=== PATIENT | male | born 1965 | race Caucasian/White ===

== ENCOUNTER → 2021-02-10 00:56 | Outpatient (CLI) | payer OTHER, SELFPAY ==
[2021-02-10 19:49] LABS: SARS-CoV-2 RNA PCR Negative
== END ==
PROVIDERS: PCP Family Medicine Adolescent Medicine; Visit Provider Internal Medicine Gastroenterology
DX: Z01.812 Encounter for preprocedural laboratory examination (principal); Z20.822 Contact with and (suspected) exposure to COVID-19
CPT/HCPCS: C9803; U0003; U0005

== ENCOUNTER 2021-08-19 12:37 | Emergency (ER) | payer OTHER, SELFPAY ==
--- NOTE | ~2021-08-19 | CT_ITS ---
EXAMINATION:CT diagnostic chest wo con DATE: 08/19/2021 15:09 INDICATION: Abdominal pain. Rib fracture. TECHNIQUE: Computed tomography (CT) of the chest was performed without intravenous contrast. Automate d exposure control and iterative reconstruction technique were employed. The dose-length product (DLP ) was 147.77 mGy-cm. COMPARISON: CT abdomen and pelvis 08/19/2021 FINDINGS: There is mild emphysema. There is mild atelectasis bilaterally. There is a right-sided aort ic arch with mirror image branching. The heart size is normal. No pericardial effusion. Calcification s in the liver and spleen are consistent with old granulomatous disease. There are acute fractures of left 10th and 11th ribs. There are old healed fractures of left second-sixth ribs. There is mild tho racic spondylosis. IMPRESSION: 1. Acute fractures of left 10th and 11th ribs. 2. Mild emphysema. Reviewed, dictated and finalized at location A.
--- NOTE | ~2021-08-19 | CT_ITS ---
EXAMINATION: CT abdomen pelvis w con DATE: 08/19/2021 14:07 INDICATION: Abdominal pain TECHNIQUE: Computed tomography (CT) of the abdomen and pelvis was performed with 100 cc Omnipaque 350 intravenous contrast. The dose-length product was 212.40 mGy-cm. Automated exposure control and iter ative reconstruction technique were employed. COMPARISON: CT dated 11/30/2015. FINDINGS: Lung bases are unremarkable. Heart size normal. No significant pleural or pericardial effus ion. No significant vascular abnormality. No lymphadenopathy. Fatty infiltration of the liver. There are calcified granulomas of the liver and spleen. Gallbladder is present. The pancreas, adrenal glands and left kidney are unremarkable. There is a subcentimeter c yst of the right kidney. Bladder wall is thickened. There is mild lumbar spondylosis. There is a nond isplaced fracture posterior medial aspect of the left 11th rib and a fracture of the left 10th rib. IMPRESSION: 1. Abnormal bladder wall thickening, suspicious for cystitis. Correlate with urinalysis. 2: Nondisplaced fractures of the left 10th and 11th ribs. 3: Hepatic steatosis. Reviewed, dictated and finalized at location A. IMPRESSION: 1. Abnormal bladder wall thickening, suspicious for cystitis. Correlate with ur inalysis. 2: Nondisplaced fractures of the left 10th and 11th ribs. 3: Hepatic steatosis.
[2021-08-19 12:45] VITALS: BP 138/87; PULSE 108; RESP 18; TEMP 36.6; O2SAT 100
[2021-08-19] MEDS: SODIUM CHLORIDE 0.9% IV 1,000 ML 999 ML IV CONT ×2 (13:20→15:04)
[2021-08-19 13:30] LABS: Basophils Percent Auto 0.1 % (0.2-1.2); Eosinophils Percent Auto 0.5 % (0-4.4); Hematocrit 37.5 % (42.0-52.0); Hemoglobin 13.7 g/dL (14.0-18.0); Immature Granulocyte Absolute 0.07 K/mm3 (0.00-0.031); Immature Granulocyte Percent A 0.8 % (0-0.5); Lymphocytes Absolute Auto 1.63 K/mm3 (0.9-3.2); Lymphocytes Percent Auto 18.8 % (18.3-44.2); Mean Corpuscular HGB Conc 36.5 g/dl (32-36); Mean Corpuscular Hemoglobin 34.5 pg (26-34); Mean Corpuscular Volume 94.5 fl (80-100); Mean Platelet Volume 9.7 fl (7.4-10.4); Monocytes Absolute Auto 1.1 K/mm3 (0.1-0.6); Neutrophils Absolute Auto 5.8 K/mm3 (1.3-6.7); Neutrophils Percent Auto 66.8 % (45.5-73.1); Platelet Count Result 95 k/mm3 (150-375); Red Blood Count 3.97 M/mm3 (4.6-6.20); Red Cell Distribution Width 13.2 % (11.5-14.5); White Blood Count 8.7 K/mm3 (4.5-10.0)
[2021-08-19 13:31] LABS: Add Urine Microscopic? YES; Appearance Urine Clear (Clear); Bilirubin Urine Negative (Negative); Blood Urine 1+ (Negative); Color Urine Yellow (Yellow); Glucose Urine UA Negative (Negative); Ketones Urine Negative (Negative); Leukocyte Esterase Ur Negative LEU/UL (Negative); Mucus Urine Rare /lpf; Nitrate Urine Negative (Negative); Protein Urine Negative (Negative); Specific Grav Ur 1.014 (1.001-1.035); Squamous Epithelial Cell Urine Rare /hpf (Few); WBC Urine 0-3 /hpf
[2021-08-19 13:40] LABS: Alanine Aminotransferase 48 U/L (4-50); Albumin Level 4.9 g/dL (3.5-5.1); Alkaline Phosphatase 61 U/L (38-126); Anion Gap 10 mmol/L (8-16); Aspartate Amino Transferase 55 U/L (17-59); Bilirubin,Total 1.5 mg/dL (0.2-1.3); Blood Urea Nitrogen 24 mg/dL (9-20); Calcium 9.3 mg/dL (8.4-10.2); Carbon Dioxide 32 mmol/L (22-30); Chloride 87 mmol/L (98-107); Estimated CRCL calculation 91 ml/min; Estimated Glomerular Filt Rate > 60; Glucose 91 mg/dL (65-110); Lipase 73 U/L (23-300); Potassium 3.5 mmol/L (3.4-5.0); Sodium 129 mmol/L (137-145)
--- NOTE | 2021-08-19 14:35 | ED.GENADULT ---
HPI - General Adult General Chief complaint: Back Pain/Injury Stated complaint: back pain, NKI Time Seen by Provider: 08/19/21 13:03 Source: patient Mode of arrival: ambulatory Limitations: no limitations History of Present Illness HPI narrative: Patient is 56 years old white male presents with pain at the left lower ribs posteriorly started 1 week ago. Patient denies any trauma. Patient also complaining of vomiting on average 100 time a day for 3 days in a row, last vomiting was patient girlfriend is telling him that his sweat smells so bad. Patient is fully vaccinated with COVID-19. Patient could not work for the last 2 weeks because he been sick for 1 week. Patient's girlfriend is asymptomatic. Patient had history of rib fracture secondary to trauma years ago. Patient does not remember which side, patient reports that his symptoms are improving and he could not come to the emergency room at that time because he was not able to stop vomiting Related Data Home Medications Medication Instructions Recorded Confirmed No Home Medications 08/19/21 08/19/21 Allergies Allergy/AdvReac Type Severity Reaction Status Date / Time No Known Allergies Allergy Verified 08/19/21 12:44 Review of Systems Review of Systems: CONSTITUTIONAL: Denies fever, chills, or sweats. EYES: Denies visual changes, redness, or discharge. ENT: Denies rhinorrhea, congestion, sore throat, or otalgia. CARDIOVASCULAR: Denies chest pain, palpitations, or edema. RESPIRATORY: Denies cough or dyspnea. GASTROINTESTINAL: Denies abdominal pain, nausea, vomiting, or diarrhea. GENITOURINARY: Denies dysuria or hematuria. SKIN: Denies rash or itching. MUSCULOSKELETAL: Denies back pain, joint pain, or myalgia. NEUROLOGIC: Denies headache, numbness, or weakness. PSYCHIATRIC: Denies anxiety or depression. PMFSH Social History Social History Smoking packs per day: 1 Smoking cigarettes per day: 20.0 Years smoked: 35 Smoking pack-years: 35.00 Smoking status: Current every day smoker Tobacco type: cigarettes Alcohol intake: current Alcohol use details: PATIENT REPORTS HARD LIQUOR BINGES EVERY 2-3 MONTHS Gender identity (if verbalized by the patient): Male Spiritual care concerns: No Exam Narrative: General appearance: Well-developed, well-nourished Skin: Normal color Head: Normocephalic, nontraumatic Eyes: Clear conjunctiva ENT: Oropharynx normal, ears normal, nose normal Neck: Supple, nontender Chest and respiratory: Diffuse tenderness left lower ribs posteriorly, no bruises, no swelling, no rash Heart: Regular rate/rhythm Abdomen: Soft, nontender, no organomegaly, quiet bowel sounds Vascular: Normal peripheral pulses, normal capillary refill. Musculoskeletal: Normal range of motion, nontender back Neurologic: Alert and oriented ?3, WEB CONTENT DEVELOPER is normal as tested, no gross motor deficit Course Course Emergency Course: Stable Consultations Consultation #1: Dr. Kumar Date: 08/19/21 Time: 17:27 Vital Signs Vital signs: Vital Signs Temperature 36.6 C 08/19/21 12:45 Pulse Rate 108 H 08/19/21 12:45 Respiratory Rate 18 08/19/21 12:45 Blood Pressure 138/87 08/19/21 12:45 Pulse Oximetry 100 08/19/21 12:45 Temperature 36.6 C 08/19/21 12:45 Pulse Rate 108 H 08/19/21 12:45 Respiratory Rate 18 08/19/21 12:45 Blood Pressure 138/87 08/19/21 12:45 Pulse Oximetry 100 08/19/21 12:45 Medical Decision Making MDM Narrative Medical decision making narrative: Patient presents with nontraumatic left lower ribs pain, also extensive vomiting lasted for 3 days after the beginning of the rib pain
[2021-08-19 16:39] VITALS: BP 127/91; PULSE 72; RESP 18; O2SAT 100
== END 2021-08-19 17:36 | disposition home or self-care (01) ==
PROVIDERS: Emergency Provider Emergency Medicine; PCP Family Medicine Adolescent Medicine
DX: S22.42XA Multiple fractures of ribs, left side, initial encounter for closed fracture (principal); E87.1 Hypo-osmolality and hyponatremia; R00.0 Tachycardia, unspecified; D69.6 Thrombocytopenia, unspecified; F17.210 Nicotine dependence, cigarettes, uncomplicated; J43.9 Emphysema, unspecified; R93.41 Abnormal radiologic findings on diagnostic imaging of renal pelvis, ureter, or bladder; K76.0 Fatty (change of) liver, not elsewhere classified; X58.XXXA Exposure to other specified factors, initial encounter
CPT/HCPCS: 36415; 71250; 74177; 80053; 81001; 83690; 85025; 85055; 96360; 96361; 99284; J7030; Q9967

== ENCOUNTER 2021-09-16 12:52 | Observation (INO) | payer OTHER, SELFPAY ==
[2021-09-16] VITALS (11 sets, daily range): BP systolic 104–152; BP diastolic 56–103; PULSE 81–119; RESP 12–22; TEMP 36.4–36.8; O2SAT 96–100; BMI 18.3
--- NOTE | ~2021-09-16 | US_ITS ---
EXAMINATION: US right upper quadrant DATE: 09/17/2021 10:10 INDICATION: Abnormal liver function tests. TECHNIQUE: Multiple grayscale and Doppler ultrasound images of the abdomen were obtained. COMPARISON: CT abdomen and pelvis 08/19/2021 FINDINGS: The visualized portions of the head, body, and tail of the pancreas are normal. There is di ffuse hepatic steatosis. No liver surface nodularity. There is normal flow in main portal vein. The g allbladder is normal in size. No gallstones or gallbladder wall thickening. There was no sonographic Warner sign. The common duct is normal and measures 4 mm. IMPRESSION: 1. Diffuse hepatic steatosis. Reviewed, dictated and finalized at location A.
--- NOTE | ~2021-09-16 | XR_ITS ---
EXAMINATION: XR chest 1V portable DATE: 09/16/2021 14:01 INDICATION: Tachycardia. TECHNIQUE: A single frontal view of the chest was obtained. COMPARISON: Chest single view 08/15/2015, chest CT 08/19/2021 FINDINGS: There is no pneumonia, pleural effusion, or pneumothorax. The heart size is normal. There i s a right-sided aortic arch. IMPRESSION: 1. No acute cardiopulmonary disease. Reviewed, dictated and finalized at location A. FING MACHINE OPERATOR
--- NOTE | ~2021-09-16 | CT_ITS ---
EXAMINATION: CT brain wo con DATE: 09/16/2021 14:24 INDICATION: Seizure. TECHNIQUE: Computed tomography (CT) of the head was performed without intravenous contrast. The mA wa s adjusted according to patient size. Iterative reconstruction technique was employed. The dose-lengt h product was 605.33 mGy-cm. COMPARISON: Head CT 06/05/2016 FINDINGS: There is no intracranial hemorrhage, acute infarction, or abnormal intracranial mass lesion . The ventricles are normal in size. There is mild mucosal thickening in the paranasal sinuses. The o rbits are normal. The mastoid air cells are normal. IMPRESSION: 1. Normal brain. Reviewed, dictated and finalized at location A. INSPECTOR IMPRESSION: 1. Normal brain.
[2021-09-16] MEDS: LORazepam INJ (*CRX) 2 MG/ML VIAL (13:45)
--- NOTE | 2021-09-16 13:45 | PC.NURSE ---
Mother called out for help, upon entering, pt having a tonic-clonic seizure. Oxygen and safety measures in place, Ativan given with resolution of seizure. Mikey Toro at bedside.
--- NOTE | 2021-09-16 13:53 | ED.GENADULT ---
HPI - General Adult General Chief complaint: Alcohol Stated complaint: alcohol withdrawls Time Seen by Provider: 09/16/21 12:55 Source: family Mode of arrival: ambulatory Limitations: no limitations History of Present Illness HPI narrative: Patient presents for evaluation with concerns of ETOH withdrawal. Upon my initial evaluation, patient is seizing. Mother sitting at bedside and indicates patient has a long-standing hx of ETOH abuse. He was sober for approximately six months back in the summer. He has periods where he binge drinks. Mother states that he attempted to stop drinking cold turkey earlier this week. She believes his last drink was or Saturday of this week. She states her son started feeling shaky so he has his girlfriend for some alcohol. She provided this for him and her plan was to wean him off . Today he requested to come to the hospital. Mother cannot tell me what specific symptoms he was experiencing that prompted him to seek evaluation. While they were driving here, he requested that she drive faster, informed her that he thought he was going to have a seizure and requested that she contact EMS. She indicates she was close to this facility so decided to continue to drive him here. During my initial evaluation, patient received 2 mg of Ativan. Seizure episode ended upon receiving medication. Post-seizure he was alert and oriented and answered the majority of my questions appropriately. He believes his last drink was earlier this week but he cannot give me a specific date. She denies any illicit drug use. He currently denies nausea and hallucinations. He states that he feels quite well. Related Data Home Medications Medication Instructions Recorded Confirmed No Home Medications 08/19/21 08/19/21 Allergies Allergy/AdvReac Type Severity Reaction Status Date / Time No Known Allergies Allergy Verified 09/16/21 13:54 Review of Systems Review of Systems: ROS unobtainable: Yes unobtainable due to medical condition [facility] Past Medical History Medical History Alcohol abuse Surgical History Surgical History No pertinent past surgical history Social History Social History Smoking packs per day: 1 Smoking cigarettes per day: 20.0 Years smoked: 35 Smoking pack-years: 35.00 Smoking status: Current every day smoker Tobacco type: cigarettes Alcohol intake: current Alcohol use details: PATIENT REPORTS HARD LIQUOR BINGES EVERY 2-3 MONTHS Gender identity (if verbalized by the patient): Male Spiritual care concerns: No Exam Narrative: GENERAL: Actively seizing during my initial evaluation HEAD: Normocephalic, atraumatic. EYES: PERRLA and EOMI. ENT: Nares clear, no rhinorrhea or epistaxis. Mucous membranes moist. Initially foaming at the mouth NECK: Supple. No adenopathy or masses. No carotid bruits or JVD CHEST: Clear to auscultation. No respiratory distress. No wheezes rales or rhonchi HEART: HR 117 with normal rhythm. No murmur heard. Normal peripheral pulses. ABDOMEN: Soft, nontender, nondistended, normal active bowel sounds. EXTREMITIES: Normal range of motion. No edema. SKIN: Warm, dry, no rash. NEURO: Actively seizing PSYCH: Normal mood and affect. Course Course Emergency Course: This is a 56-year-old male who presented with concerns for ETOH withdrawal, with long standing hx of ETOH abuse. He was given ativan during seizure activity, to which he responded well. He was hydrated with NS and pt was given thiamine, MVI and folic acid. I discussed all relevant facts of case with Dr Lopez, who was in agreement with plans for admission. He recommended administration of phenobarbital. Potassium and magnesium were replaced. Pt was updated throughout ER stay and was in agreement with plan of care including plans for admission. I discu
--- NOTE | 2021-09-16 13:57 | ECG_ITS ---
Measurements Intervals Ranger Rate: 109 P: 75 ND: 97 QRS: 84 QRSD: 117 T: 67 QT: 353 QTc: 476 Interpretive Statements SINUS TACHYCARDIA WITH SHORT ND INTERVAL INTRAVENTRICULAR CONDUCTION DELAY DELAYED PRECORDIAL R/S TRANSITION ABNORMAL ECG Electronically Signed On 09-16-2021 15:16:41 MANAGER RADIATION by Luis Meza D.O.
[2021-09-16] MEDS: SODIUM CHLORIDE 0.9% IV 1,000 ML 999 ML IV CONT (14:00)
[2021-09-16 14:02] LABS: Basophils Percent Auto 0.2 % (0.2-1.2); Eosinophils Percent Auto 0.1 % (0-4.4); Hematocrit 41.7 % (42.0-52.0); Hemoglobin 15.5 g/dL (14.0-18.0); Immature Granulocyte Absolute 0.11 K/mm3 (0.00-0.031); Immature Platelet Fraction Pct 10.1 % (0.9-11.2); Lymphocytes Absolute Auto 1.76 K/mm3 (0.9-3.2); Lymphocytes Percent Auto 15.9 % (18.3-44.2); Mean Corpuscular HGB Conc 37.2 g/dl (32-36); Mean Corpuscular Hemoglobin 34.3 pg (26-34); Mean Corpuscular Volume 92.3 fl (80-100); Mean Platelet Volume 11.2 fl (7.4-10.4); Monocytes Absolute Auto 0.8 K/mm3 (0.1-0.6); Monocytes Percent Auto 7.1 % (2.6-8.5); Neutrophils Absolute Auto 8.4 K/mm3 (1.3-6.7); Neutrophils Percent Auto 75.7 % (45.5-73.1); Platelet Count Result 125 k/mm3 (150-375); Red Blood Count 4.52 M/mm3 (4.6-6.20); Red Cell Distribution Width 12.9 % (11.5-14.5); White Blood Count 11.1 K/mm3 (4.5-10.0)
[2021-09-16 14:06] LABS: Ethanol < 10 mg/dL (<10)
[2021-09-16 14:17] LABS: Alanine Aminotransferase 49 U/L (4-50); Albumin Level 4.8 g/dL (3.5-5.1); Alkaline Phosphatase 58 U/L (38-126); Anion Gap 14 mmol/L (8-16); Aspartate Amino Transferase 81 U/L (17-59); Bilirubin,Total 1.9 mg/dL (0.2-1.3); Blood Urea Nitrogen 17 mg/dL (9-20); Calcium 9.1 mg/dL (8.4-10.2); Carbon Dioxide 33 mmol/L (22-30); Chloride 81 mmol/L (98-107); Estimated CRCL calculation 112 ml/min; Estimated Glomerular Filt Rate > 60; Glucose 118 mg/dL (65-110); Magnesium 1.3 mg/dL (1.6-2.3); Potassium 3.2 mmol/L (3.4-5.0); Sodium 128 mmol/L (137-145)
[2021-09-16 14:19] LABS: Troponin I < 0.012 ng/mL (0.000-0.034)
[2021-09-16 14:57] LABS: Lipase 48 U/L (23-300)
[2021-09-16 15:01] LABS: Add Urine Microscopic? YES; Appearance Urine Cloudy (Clear); Bacteria Urine Trace /hpf; Bilirubin Urine Negative (Negative); Blood Urine 1+ (Negative); Color Urine Yellow (Yellow); Glucose Urine UA Negative (Negative); Ketones Urine Negative (Negative); Leukocyte Esterase Ur Negative LEU/UL (Negative); Mucus Urine Rare /lpf; Nitrate Urine Negative (Negative); Protein Urine 1+ mg/dL (Negative); RBC Urine 0-2 /hpf (0-2); Specific Grav Ur 1.008 (1.001-1.035); Squamous Epithelial Cell Urine Rare /hpf (Few); WBC Urine 0-3 /hpf
[2021-09-16] MEDS: PHENobarbitaL sodium (*CRX) 130 MG/ML VIAL 260 MG IV PUSH (16:26)
[2021-09-16] MEDS: THIAMINE HCL 200 MG/2 ML VIAL 100 MG IV PUSH (16:32)
[2021-09-16] MEDS: MULTIVITAMINS-12 INJ VIAL 1 5 ML, MULTIVITAMINS-12 INJ VIAL 2 5 ML in SODIUM CHLORIDE 0... 100 ML IV CONT (16:35)
[2021-09-16] MEDS: MAGNESIUM SULF 2 GM/WATER 50ML 2 GM/50 ML BAG IVPB (16:36)
[2021-09-16] MEDS: FOLIC ACID 1 MG/0.2 ML INJ IV PUSH (16:36)
[2021-09-16] MEDS: POTASSIUM CHLORIDE 20 MEQ PACKET (FOR LIQUID) 40 MEQ PO (16:36)
--- NOTE | 2021-09-16 17:00 | PM.IMHP ---
H&P: HPI History of Present Illness Date/Time: 09/16/21 17:00 Chief Complaint: Alcohol withdrawal symptoms. Narrative: This is a 56-year-old male with longstanding history of alcohol abuse with history of alcohol withdrawal seizures who presented to the emergency department earlier today via private vehicle for evaluation of alcohol withdrawal symptoms. The patient is somnolent having recently received Ativan for seizure activity and thus a majority of the following is obtained via a review of his electronic medical records as well as discussions with staff and the patient's mother at bedside. Earlier in the week he decided that he wanted to quit drinking (he has had periods of sobriety as long as 6 months) however he developed tremors and anxiety on and since that time he has been taking shots here and there in attempts to ?wean himself off.? Today he developed increasing tremors and anxiety with feelings as though he was going to have a seizure and he asked his mom to drive him to the emergency room. Not long after arrival staff for called to bedside and the patient was noted to be having a tonic clonic seizure for which he was given lorazepam 2 mg x1 cessation of the seizure activity. He has remained somnolent since although he is noted to move around somewhat in bed and will open his eyes to stimuli. He does not answer questions however. Labs done today showed multiple electrolyte abnormalities and with further questioning his mom mentions that he has been drinking a majority of his calories for at least the past 1 week and has had little food intake. When he stopped drinking earlier on in the week he developed nausea, vomiting, and diarrhea which she states is pretty typical when he tries to quit drinking. Mom does not think that he was having any hallucinations or significant sweats. She does not believe he has had any recent illness or sick contacts. Review of Systems Review of Systems: A review of systems is unable to be obtained given current clinical condition as detailed above. [facility] Past Medical History Medical History Alcohol abuse Anxiety Asthma Tobacco use Surgical History Surgical History No pertinent past surgical history Family History Family History (Updated 09/16/21 @ 23:09 by Gretchen Lynn PA-C) Other Alcoholism Chronic obstructive pulmonary disease Social History Social History (Updated 09/16/21 @ 23:10 by Gretchen Lynn PA-C) Social History: Surrogate decision maker: Brandy Deshpande (mother) or Kerrie Sanchez (girlfriend). Code status: Full code. Smoking packs per day: 1 Smoking cigarettes per day: 20.0 Years smoked: 35 Smoking pack-years: 35.00 Smoking status: Current every day smoker Tobacco type: cigarettes Alcohol intake: current Alcohol use details: Longstanding history of alcohol abuse. Patient typically drinks vodka. Unable to qualify at this time. Substance use: never Substance use type: does not use Additional living arrangements comments: The patient lives with his girlfriend in a basement apartment in his mother's home. 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 Meds Home Medications and Allergies Home Medications Medication Instructions Recorded Confirmed Type No Home Medications 08/19/21 09/16/21 History Allergies Allergy/AdvReac Type Severity Reaction Status Date / Time No Known Allergies Allergy Verified 09/16/21 13:54 Vital Signs Vital Signs - 24 hr 09/16/21 12:57 09/16/21 14:01 09/16/21 15:54 Temperature 97.8 F Pulse Rate 111 H 119 H 107 H Respiratory Rate 19 16 22 H Blood Pressure 147/103 H 152/56 H 106/68 Pulse Oximetry 100 99 99 09/16/21 16:31 09/16/21 17:49 09/16/21 18:15 Temperature Pulse Rate 99 89 89 Respiratory Rate 12 15 15 Blood Pressure 104/79 110/68 110/68 Pulse Oximetry 96 96 96 09/16/21 18:30
[2021-09-16 17:31] LABS: Troponin I < 0.012 ng/mL (0.000-0.034)
[2021-09-16 17:32] LABS: Barbiturate Screen Urine Negative (Negative); Benzodiazepines Screen Urine Negative (Negative)
[2021-09-16 17:51] LABS: Amphetamine Screen Urine Negative (Negative); Cannabinoid Screen Urine Negative (Negative); Cocaine Screen Urine Negative (Negative); Methadone Screen Urine Negative (Negative); Opiate Screen Urine Negative (Negative); Phencyclidine Screen Urine Negative (Negative)
[2021-09-16] MEDS: FAMOTIDINE 20 MG/2 ML VIAL IV PUSH (21:03)
[2021-09-16 23:55] LABS: Prothrombin Time 13.3 Seconds (11.1-14.7)
[2021-09-16 23:56] LABS: Partial Thromboplastin Time 24.5 SECONDS (22.3-36.8)
[2021-09-17] VITALS (9 sets, daily range): BP systolic 103–131; BP diastolic 69–82; PULSE 78–129; RESP 12–18; TEMP 36.3–36.8; O2SAT 98–100
[2021-09-17 00:03] LABS: Anion Gap 6 mmol/L (8-16); Blood Urea Nitrogen 14 mg/dL (9-20); Calcium 7.9 mg/dL (8.4-10.2); Carbon Dioxide 31 mmol/L (22-30); Chloride 90 mmol/L (98-107); Estimated CRCL calculation 107 ml/min; Estimated Glomerular Filt Rate > 60; Glucose 88 mg/dL (65-110); Potassium 2.8 mmol/L (3.4-5.0); Sodium 127 mmol/L (137-145)
[2021-09-17 05:12] LABS: Basophils Percent Auto 0.1 % (0.2-1.2); Eosinophils Percent Auto 0.3 % (0-4.4); Hematocrit 36.3 % (42.0-52.0); Hemoglobin 12.9 g/dL (14.0-18.0); Immature Granulocyte Percent A 1.1 % (0-0.5); Lymphocytes Absolute Auto 1.47 K/mm3 (0.9-3.2); Lymphocytes Percent Auto 16.3 % (18.3-44.2); Mean Corpuscular HGB Conc 35.5 g/dl (32-36); Mean Corpuscular Hemoglobin 33.6 pg (26-34); Mean Corpuscular Volume 94.5 fl (80-100); Mean Platelet Volume 9.6 fl (7.4-10.4); Monocytes Absolute Auto 0.6 K/mm3 (0.1-0.6); Neutrophils Absolute Auto 6.8 K/mm3 (1.3-6.7); Neutrophils Percent Auto 75.2 % (45.5-73.1); Platelet Count Result 84 k/mm3 (150-375); Red Blood Count 3.84 M/mm3 (4.6-6.20); Red Cell Distribution Width 13.1 % (11.5-14.5)
[2021-09-17 07:15] LABS: Anion Gap 7 mmol/L (8-16); Blood Urea Nitrogen 13 mg/dL (9-20); Calcium 8.2 mg/dL (8.4-10.2); Carbon Dioxide 30 mmol/L (22-30); Chloride 92 mmol/L (98-107); Estimated CRCL calculation 117 ml/min; Estimated Glomerular Filt Rate > 60; Glucose 97 mg/dL (65-110); Potassium 2.9 mmol/L (3.4-5.0); Sodium 129 mmol/L (137-145)
[2021-09-17] MEDS: FAMOTIDINE 20 MG/2 ML VIAL IV PUSH ×2 (08:13→20:32)
[2021-09-17] MEDS: POTASSIUM CHLORIDE 20 MEQ PACKET (FOR LIQUID) 40 MEQ PO ×2 (08:13→22:32)
[2021-09-17] MEDS: THIAMINE HCL 200 MG/2 ML VIAL 100 MG IV PUSH (08:13)
[2021-09-17] MEDS: FOLIC ACID 1 MG TABLET PO (08:13)
[2021-09-17 08:33] LABS: Hepatitis B Surface Antigen Negative (Negative)
--- NOTE | 2021-09-17 10:54 | PM.IMPN ---
Progress Note: A&P Assessment and Plan (1) Alcohol withdrawal seizure: Code(s): F10.239 - Alcohol dependence with withdrawal, unspecified; R56.9 - Unspecified convulsions Status: Acute Assessment and Plan: Continue benzodiazepines per [facility] protocol Continue thiamine and folic acid (2) Alcohol abuse: Code(s): F10.10 - Alcohol abuse, uncomplicated Status: Acute Assessment and Plan: He is willing to resume intensive outpatient therapy upon discharge (3) Electrolyte abnormality: Code(s): E87.8 - Other disorders of electrolyte and fluid balance, not elsewhere classified Status: Acute Assessment and Plan: Continue IV saline with potassium Follow-up lab (4) Tobacco use: Code(s): Z72.0 - Tobacco use Status: Acute (5) Elevated LFTs: Code(s): R79.89 - Other specified abnormal findings of blood chemistry Status: Acute Assessment and Plan: Likely due to alcohol-induced hepatitis Right upper quadrant ultrasound pending Hepatitis screen pending Subjective Date/time seen: 09/17/21 10:54 Review of Systems Review of Systems: All systems reviewed & are unremarkable except as noted in HPI and below Exam Narrative: General: Middle-aged gentleman in no acute distress lying comfortably in his hospital bed. HEENT: Normocephalic, atraumatic. PERRL. Sclerae anicteric. Moist mucus membranes. Neck: Supple. Respiratory: Respirations are even and nonlabored. Lung sounds are diminished due to poor effort. Cardiovascular: Regular rate and rhythm with S1-S2. Gastrointestinal: Abdomen is soft, nontender, and nondistended with positive bowel sounds. Skin: Warm and dry. No rash or lesions on limited exam. Extremities: No cyanosis, clubbing, or edema. Radial and pedal pulses intact. Neurological: Cranial nerves intact to gross inspection. Tone and strength symmetric to inspection. Psychiatric: Alert and oriented to person place and time. Animated. Objective Data Vital Signs Vital Signs: Vital Signs - 24 hr 09/16/21 12:57 09/16/21 14:01 09/16/21 15:54 Temperature 97.8 F Pulse Rate 111 H 119 H 107 H Pulse Rate [Right Radial Palpation] Respiratory Rate 19 16 22 H Blood Pressure 147/103 H 152/56 H 106/68 Pulse Oximetry 100 99 99 09/16/21 16:31 09/16/21 17:49 09/16/21 18:15 Temperature Pulse Rate 99 89 89 Pulse Rate [Right Radial Palpation] Respiratory Rate 12 15 15 Blood Pressure 104/79 110/68 110/68 Pulse Oximetry 96 96 96 09/16/21 18:30 09/16/21 20:02 09/16/21 20:04 Temperature 98.3 F 97.6 F Pulse Rate 93 96 99 Pulse Rate [Right Radial Palpation] Respiratory Rate 20 12 18 Blood Pressure 113/80 111/69 Pulse Oximetry 100 99 96 09/16/21 21:18 09/16/21 23:17 09/17/21 00:00 Temperature Pulse Rate 89 90 Pulse Rate [Right Radial Palpation] 81 90 Respiratory Rate Blood Pressure Pulse Oximetry 09/17/21 04:00 09/17/21 05:11 09/17/21 08:00 Temperature 98.3 F Pulse Rate 92 101 H 78 Pulse Rate [Right Radial Palpation] Respiratory Rate 12 Blood Pressure 131/82 Pulse Oximetry 98 Intake/Output Intake/Output: Intake & Output 09/14/21 09/15/21 09/16/21 09/17/21 23:59 23:59 23:59 23:59 Intake Total 1050 1010 Output Total 950 Balance 1050 60 Meds/Results Medications: Active Medications Generic Name Dose Route Start Last Admin Trade Name Christianoq PRN Reason Stop Dose Admin Chlordiazepoxide HCl 25 mg 09/16/21 23:17 Chlordiazepoxide (*Crx) 25 Mg Capsule PO Q6H PRN Withdrawal and elevated CIWA Famotidine 20 mg 09/16/21 21:00 09/17/21 08:13 Famotidine 20 Mg/2 Ml Vial IV PUSH 20 mg Q12HR AMY Administration Folic Acid 1 mg 09/17/21 09:00 09/17/21 08:13 Folic Acid 1 Mg Tablet PO 1 mg DAILY AMY Administration Multivitamins 5 ml/ 1,010 mls @ 100 mls/hr 09/16/21 15:54 09/17/21 02:41 Multivitamins 5 ml/ Sodium IV CONT Infused
[2021-09-17] MEDS: KCL 40 MEQ/0.45% NS 1,000 ML 100 ML IV CONT (11:43)
[2021-09-17 16:00] LABS: Alanine Aminotransferase 61 U/L (4-50); Albumin Level 3.7 g/dL (3.5-5.1); Alkaline Phosphatase 55 U/L (38-126); Anion Gap 7 mmol/L (8-16); Aspartate Amino Transferase 88 U/L (17-59); Bilirubin,Total 1.4 mg/dL (0.2-1.3); Blood Urea Nitrogen 15 mg/dL (9-20); Calcium 8.2 mg/dL (8.4-10.2); Carbon Dioxide 27 mmol/L (22-30); Chloride 93 mmol/L (98-107); Estimated CRCL calculation 101 ml/min; Estimated Glomerular Filt Rate > 60; Glucose 92 mg/dL (65-110); Magnesium 1.8 mg/dL (1.6-2.3); Sodium 127 mmol/L (137-145)
[2021-09-17 16:31] LABS: Cortisol Random 7.87 ug/dL
[2021-09-17 17:06] LABS: Creatinine Urine 62.8 mg/dL
[2021-09-17 17:07] LABS: Sodium Urine Random 33 meq/L
[2021-09-17] MEDS: POTASSIUM CHLORIDE 20 MEQ TABLET 40 MEQ PO (17:39)
[2021-09-17] MEDS: MAGNESIUM SULF 2 GM/WATER 50ML 2 GM/50 ML BAG IVPB (17:40)
[2021-09-18] VITALS: PULSE 89
[2021-09-18 04:00] VITALS: PULSE 100
[2021-09-18 06:00] VITALS: BP 125/80; PULSE 80; RESP 20; TEMP 37.1; O2SAT 99
[2021-09-18 06:00] LABS: Hematocrit 33.5 % (42.0-52.0); Hemoglobin 12.1 g/dL (14.0-18.0); Immature Platelet Fraction Pct 6.7 % (0.9-11.2); Mean Corpuscular HGB Conc 36.1 g/dl (32-36); Mean Corpuscular Hemoglobin 34.4 pg (26-34); Mean Corpuscular Volume 95.2 fl (80-100); Mean Platelet Volume 10.5 fl (7.4-10.4); Platelet Count Result 101 k/mm3 (150-375); Red Blood Count 3.52 M/mm3 (4.6-6.20); Red Cell Distribution Width 12.9 % (11.5-14.5); White Blood Count 8.2 K/mm3 (4.5-10.0)
[2021-09-18 06:05] LABS: Alanine Aminotransferase 65 U/L (4-50); Albumin Level 3.5 g/dL (3.5-5.1); Alkaline Phosphatase 90 U/L (38-126); Anion Gap 5 mmol/L (8-16); Aspartate Amino Transferase 156 U/L (17-59); Bilirubin,Total 0.8 mg/dL (0.2-1.3); Blood Urea Nitrogen 16 mg/dL (9-20); Calcium 8.4 mg/dL (8.4-10.2); Carbon Dioxide 24 mmol/L (22-30); Chloride 101 mmol/L (98-107); Estimated CRCL calculation 117 ml/min; Estimated Glomerular Filt Rate > 60; Glucose 97 mg/dL (65-110); Magnesium 2.1 mg/dL (1.6-2.3); Potassium 4.3 mmol/L (3.4-5.0); Sodium 130 mmol/L (137-145)
--- NOTE | 2021-09-18 08:11 | PM.DS ---
DS: Admitting Diagnosis Discharge Date 09/18/21 Admitting Diagnosis Alcohol withdrawal seizure DS: Discharge Diagnosis Discharge Diagnosis (1) Alcohol withdrawal seizure: Code(s): F10.239 - Alcohol dependence with withdrawal, unspecified; R56.9 - Unspecified convulsions Status: Acute (2) Alcohol abuse: Code(s): F10.10 - Alcohol abuse, uncomplicated Status: Acute (3) Electrolyte abnormality: Code(s): E87.8 - Other disorders of electrolyte and fluid balance, not elsewhere classified Status: Acute (4) Tobacco use: Code(s): Z72.0 - Tobacco use Status: Acute (5) Elevated LFTs: Code(s): R79.89 - Other specified abnormal findings of blood chemistry Status: Acute (6) Thrombocytopenia: Code(s): D69.6 - Thrombocytopenia, unspecified Status: Acute DS: Summary Hospital Course Reason for hospitalization: 56yo male with longstanding history of alcohol abuse with withdrawal seizures who presented to the ED for evaluation of alcohol withdrawal symptoms and seizure. Please see H&P for details. Hospital Course: Patient presented to the ED via private vehicle for evaluation of alcohol withdrawal symptoms. Earlier in the week he decided that he wanted to quit drinking. On admission, he developed increasing tremors and anxiety with feelings as though he was going to have a seizure. Not long after arrival to the ED, the staff noted patient having a tonic clonic seizure for which he was given lorazepam 2 mg x1 with cessation of the seizure activity. He also revceived one dose of phenobarb but not continued. CXR clear. CT brain showing no acute abnormalities. Labs showed multiple electrolyte abnormalities felt related to alcohol use and very little food intake. He had hyponatremia, hypokalemia and hypoMg. Electrolytes corrected with resolution except sodium level improved but remained low at 130. [place] this will continue to improve. Plt count low but felt to be chronic related to his alcoholism. LFTs elevated felt to be alcholic hepatitis. RUQ showing hepatic steatosis and HepB surface Ag negative. HepC pending. UDS negative and alcohol level was negative on presentation. He was treated wt folate and thiamine. He had Ativan and Librium available but did not require these medications. His last drink was 09/11/21. Sandeen feels much better. He has been up walking in the halls. No tremors or diaphoresis. He overall did well and was able to be discharged home on 09/18/21, He was educated extensively about the benefits of smoking cessation. He was advised about reconnecting with AA and no driving until seen by his PCP. Status at Discharge Cognitive/behavioral status at discharge: stable Time Spent with Patient Time attestation: Total time spent providing and/or coordinating discharge services: 35 minutes Time spent: Greater than 30 minutes Specific discharge activities: Education about the benefits of abstaining from alcohol. Exam Narrative: AF 98.7 125/80 80 20 99% ra Gen - NARD Chest - CTA bilaterally CV - RRR S1/S2; Tele occasional STach and rare trigeminy Abd - soft, NT/ND, +BS Ext - no pedal edema Psych - pressured and rapid speech at times, anxious Skin - warm and dry DS: Data Data Completed and Pending Labs on day of discharge: Labs from last 24 hours 09/18/21 09/18/21 09/17/21 05:34 05:34 16:51 WBC 8.2 RBC 3.52 L Hgb 12.1 L Hct 33.5 L MCV 95.2 MCH 34.4 H MCHC 36.1 H RDW 12.9 Plt Count 101 L MPV 10.5 H % Immature Plt Fraction 6.7 Sodium 130 L Potassium 4.3 Chloride 101 Carbon Dioxide 24 Anion Gap 5 L BUN 16 Creatinine 0.60 L Estim Creat Clear Calc 117 Estimated GFR > 60 Glucose 97 Calcium 8.4 Magnesium 2.1 Total Bilirubin 0.8 AST 156 H ALT 65 H Alkaline Phosphatase 90 Total Protein 6.0 L Albumin 3.5 TSH (Reflex) Random Cortisol Ur Random
[2021-09-18] MEDS: FOLIC ACID 1 MG TABLET PO (08:34)
[2021-09-18] MEDS: THIAMINE HCL 200 MG/2 ML VIAL 100 MG IV PUSH (08:34)
[2021-09-18] MEDS: FAMOTIDINE 20 MG/2 ML VIAL IV PUSH (08:35)
== END 2021-09-18 09:08 | disposition home or self-care (01) ==
LOC: ANHED 17:07 → ANH2MED 20:43
PROVIDERS: Internal Medicine; Physician Assistant; Admitting Provider Family Medicine; Emergency Provider Nurse Practitioner; PCP Family Medicine Adolescent Medicine; Visit Provider Internal Medicine
DX: F10.239 Alcohol dependence with withdrawal, unspecified (principal); R56.9 Unspecified convulsions; K76.0 Fatty (change of) liver, not elsewhere classified; R25.1 Tremor, unspecified; E87.8 Other disorders of electrolyte and fluid balance, not elsewhere classified; F17.210 Nicotine dependence, cigarettes, uncomplicated; R79.89 Other specified abnormal findings of blood chemistry
CPT/HCPCS: 36415; 70450; 71045; 76705; 80048; 80053; 80307; 81001; 82533; 82570; 83690; 83735; 84300; 84443; 84484; 85025; 85027; 85055; 85610; 85730; 87340; 87522; 93005; 96361; 96365; 96366; 96367; 96368; 96375; 99285; A9270; G0378; G0379; J2060; J2560; J3411; J3475; J3480; J7030

== ENCOUNTER 2021-10-14 15:32 | Emergency (ER) | payer OTHER, SELFPAY ==
[2021-10-14 15:30] VITALS: BP 110/52; PULSE 96; RESP 20; TEMP 36.8; O2SAT 99
--- NOTE | 2021-10-14 15:57 | PC.NURSE ---
Per EDP Magen, no sitter needed. EDP also states patient is able to keep belongings at this time.
[2021-10-14 16:08] LABS: Basophils Percent Auto 0.3 % (0.2-1.2); Eosinophils Absolute Auto 0.1 K/mm3 (0-0.3); Eosinophils Percent Auto 0.7 % (0-4.4); Hematocrit 42.8 % (42.0-52.0); Immature Granulocyte Absolute 0.04 K/mm3 (0.00-0.031); Immature Granulocyte Percent A 0.6 % (0-0.5); Lymphocytes Absolute Auto 2.67 K/mm3 (0.9-3.2); Lymphocytes Percent Auto 37.7 % (18.3-44.2); Mean Corpuscular Hemoglobin 33.9 pg (26-34); Mean Corpuscular Volume 96.6 fl (80-100); Mean Platelet Volume 9.6 fl (7.4-10.4); Monocytes Absolute Auto 0.7 K/mm3 (0.1-0.6); Monocytes Percent Auto 9.2 % (2.6-8.5); Neutrophils Absolute Auto 3.7 K/mm3 (1.3-6.7); Neutrophils Percent Auto 51.5 % (45.5-73.1); Platelet Count Result 83 k/mm3 (150-375); Red Blood Count 4.43 M/mm3 (4.6-6.20); Red Cell Distribution Width 14.1 % (11.5-14.5); White Blood Count 7.1 K/mm3 (4.5-10.0)
[2021-10-14 16:38] LABS: Alanine Aminotransferase 42 U/L (4-50); Albumin Level 4.8 g/dL (3.5-5.1); Alkaline Phosphatase 71 U/L (38-126); Anion Gap 17 mmol/L (8-16); Aspartate Amino Transferase 72 U/L (17-59); Bilirubin,Total 0.5 mg/dL (0.2-1.3); Blood Urea Nitrogen 8 mg/dL (9-20); Calcium 8.9 mg/dL (8.4-10.2); Carbon Dioxide 26 mmol/L (22-30); Chloride 101 mmol/L (98-107); Estimated CRCL calculation 108 ml/min; Estimated Glomerular Filt Rate > 60; Glucose 100 mg/dL (65-110); Sodium 144 mmol/L (137-145)
[2021-10-14 16:58] LABS: Add Urine Microscopic? YES; Appearance Urine Clear (Clear); Bilirubin Urine Negative (Negative); Blood Urine 2+ (Negative); Color Urine Yellow (Yellow); Glucose Urine UA Negative (Negative); Ketones Urine Negative (Negative); Leukocyte Esterase Ur Negative LEU/UL (Negative); Nitrate Urine Negative (Negative); Protein Urine 2+ mg/dL (Negative); RBC Urine 0-2 /hpf (0-2); Specific Grav Ur 1.005 (1.001-1.035); Urobilinogen Urine Negative mg/dL (<2.0); WBC Urine 0-3 /hpf
[2021-10-14 17:22] LABS: Amphetamine Screen Urine Negative (Negative); Barbiturate Screen Urine Negative (Negative); Benzodiazepines Screen Urine Negative (Negative); Cannabinoid Screen Urine Negative (Negative); Cocaine Screen Urine Negative (Negative); Methadone Screen Urine Negative (Negative); Opiate Screen Urine Negative (Negative); Phencyclidine Screen Urine Negative (Negative)
[2021-10-14 17:24] LABS: Ethanol > 300 mg/dL (<10)
[2021-10-14 18:18] VITALS: BP 122/62; PULSE 93; RESP 19; O2SAT 98
--- NOTE | 2021-10-14 18:52 | PC.NURSE ---
Patient not in room at this time. EDP Magen aware. ED security notified and checking cameras to figure out where patient went.
--- NOTE | 2021-10-14 18:55 | ED.GENADULT ---
HPI - General Adult General Chief complaint: Alcohol Stated complaint: ETOH, SI Time Seen by Provider: 10/14/21 15:39 History of Present Illness HPI narrative: Patient is a 56-year-old male who presents ER with alcohol intoxication. He reports he drank a pint of vodka this morning. He has no additional complaints reports he is unsure why he is at the hospital. Discussed with patient that his father was concerned that patient made statements about suicidal ideation and that he had also sent text messages to another individual indicating similar statement. We have no evidence for access to this at this time. Patient that he mentally denies the situation reports that he has never been hospitalized for his mental health, he has never made an attempt on his own life, and has no intention to kill himself at this time. Reports he has been sober over the last 5 weeks and had just decided to drink again yesterday. Denies any new stressors in his life. Related Data Allergies Allergy/AdvReac Type Severity Reaction Status Date / Time No Known Allergies Allergy Verified 09/16/21 13:54 Review of Systems Review of Systems: All systems reviewed & are unremarkable except as noted in HPI and below Constitutional: Constitutional: Denies chills and Denies fever(s) Cardiovascular: Cardiovascular: Denies chest pain, Denies rapid heart rate and Denies radiating jaw, neck or arm pain Respiratory: Respiratory: Denies cough, Denies dyspnea and Denies wheezing Gastrointestinal: Gastrointestinal: Denies abdominal pain, Denies diarrhea, Denies nausea and Denies vomiting Neurologic: Denies syncope, Denies headache(s), Denies focal weakness and Denies numbness Psychiatric: Psychiatric: Denies anxiety, Denies depression, Denies homicidal ideation and Denies suicidal ideation [facility] Past Medical History Medical History Alcohol abuse Anxiety Asthma Tobacco use Surgical History Surgical History No pertinent past surgical history Family History Family History (Updated 09/16/21 @ 23:09 by Gretchen Lynn PA-C) Other Alcoholism Chronic obstructive pulmonary disease Social History Social History (Updated 09/16/21 @ 23:10 by Gretchen Lynn PA-C) Social History: Surrogate decision maker: Brandy Charlee (mother) or Kerrie Sanchez (girlfriend). Code status: Full code. Smoking packs per day: 1 Smoking cigarettes per day: 20.0 Years smoked: 35 Smoking pack-years: 35.00 Smoking status: Current every day smoker Tobacco type: cigarettes Alcohol intake: current Alcohol use details: Longstanding history of alcohol abuse. Patient typically drinks vodka. Unable to qualify at this time. Substance use: never Substance use type: does not use Additional living arrangements comments: The patient lives with his girlfriend in a basement apartment in his mother's home. 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 Exam Narrative: GENERAL: Intoxicated-appearing, well-nourished, and in no acute distress. HEAD: Normocephalic, atraumatic. EYES: PERRLA and EOMI. ENT: Mucous membranes moist. CHEST: Clear to auscultation. No respiratory distress. HEART: Regular rate and rhythm. Normal peripheral pulses. ABDOMEN: Soft, nontender, nondistended EXTREMITIES: Normal range of motion. No edema. SKIN: Warm, dry, no rash. NEURO: Alert and oriented x3. PSYCH: Normal mood and affect. Intoxicated. Otherwise interacting appropriately. Course Course Emergency Course: Patient was laying in his bed. We are awaiting sobriety and reassessment. Patient does not have a sitter due to low [place] scale. Patient then apparently got up and walked out of the emergency department. [place] [employer] was contacted. Vital Signs Vital signs: Vital Signs Temperature 98.2 F 10/14/21 15:30 Pulse Rate 96 10/14/21 15:30 Respiratory Rate 20
--- NOTE | 2021-10-14 19:03 | PC.NURSE ---
Called [facility] to update them on patient eloping from ED. Description of patient given. Security checking parking lots to try and locate patient.
== END 2021-10-14 21:39 | disposition left against medical advice (07) ==
PROVIDERS: Emergency Provider Emergency Medicine; PCP Family Medicine Adolescent Medicine
DX: F10.129 Alcohol abuse with intoxication, unspecified (principal); Y90.0 Blood alcohol level of less than 20 mg/100 ml; F17.210 Nicotine dependence, cigarettes, uncomplicated; F41.9 Anxiety disorder, unspecified; J45.909 Unspecified asthma, uncomplicated
CPT/HCPCS: 36415; 80053; 80307; 81001; 84443; 85025; 99283

== ENCOUNTER 2022-01-18 17:52 | Emergency (ER) | payer OTHER, SELFPAY ==
[2022-01-18 17:54] VITALS: BP 111/73; PULSE 92; RESP 16; TEMP 36.4; O2SAT 99
--- NOTE | 2022-01-18 19:51 | PC.NURSE ---
First call at 1950 no answer
--- NOTE | 2022-01-18 20:11 | PC.NURSE ---
Second call made at this time. Pt assumed left. This RN never saw the pt
== END 2022-01-18 20:15 | disposition left against medical advice (07) ==
LOC: ANHED 20:14
PROVIDERS: PCP Family Medicine Adolescent Medicine
DX: R56.9 Unspecified convulsions (principal)
CPT/HCPCS: 99199

== ENCOUNTER 2022-04-06 22:53 | Emergency (ER) | payer OTHER, SELFPAY ==
[2022-04-06] VITALS (10 sets, daily range): BP systolic 104–122; BP diastolic 81–88; PULSE 68–87; RESP 12–20; TEMP 36.4; O2SAT 91–97
--- NOTE | ~2022-04-06 | CT_ITS ---
EXAMINATION: CT brain wo con INDICATION: Paresthesias, visual disturbance COMPARISON: 09/16/2021 TECHNIQUE: Standard unenhanced head CT. The dose-length product (DLP) was 605.33 mGy-cm. The mA was a djusted according to patient size. Iterative reconstruction technique was employed. FINDINGS: There is no intracranial hemorrhage, acute infarction, or abnormal mass lesion. The ventric les are normal. There is no abnormal mass effect or midline shift. The horton-white matter differentiat ion is normal. The basal cisterns are patent. The orbits are normal. The paranasal sinuses, mastoids and calvarium are normal. IMPRESSION: 1. No acute intracranial abnormality. Reviewed, dictated and finalized at location A.
--- NOTE | ~2022-04-06 | XR_ITS ---
EXAMINATION: XR chest 2V DATE: 04/07/2022 00:11 INDICATION: Shortness of breath TECHNIQUE: PA and lateral views of the chest are obtained. COMPARISON: None available FINDINGS: The lungs are free of acute opacities. There is no pleural effusion or pneumothorax. The ca rdiomediastinal silhouette is normal. Healed left-sided rib fractures are noted. There is a right-kane ed aortic arch. IMPRESSION: 1. No acute cardiopulmonary abnormality. Reviewed, dictated and finalized at location A.
--- NOTE | 2022-04-06 23:15 | ECG_ITS ---
Measurements Intervals [place] Rate: 77 P: 74 ID: 108 QRS: 85 QRSD: 106 T: 79 QT: 379 QTc: 431 Interpretive Statements SINUS RHYTHM WITH SHORT ID INTERVAL MILD EARLY REPOLARIZATION NOTED COMPARED TO THE PRIOR TRACING, THE RATE IS SLOWER. Electronically Signed On 04-07-2022 9:27:03 CDT by Lynette Knox M.D.
[2022-04-06 23:38] LABS: Basophils Percent Auto 0.4 % (0.2-1.2); Eosinophils Absolute Auto 0.1 K/mm3 (0-0.3); Eosinophils Percent Auto 1.5 % (0-4.4); Hematocrit 41.3 % (42.0-52.0); Hemoglobin 13.9 g/dL (14.0-18.0); Immature Granulocyte Absolute 0.03 K/mm3 (0.00-0.031); Immature Granulocyte Percent A 0.3 % (0-0.5); Immature Platelet Fraction Pct 4.9 % (0.9-11.2); Lymphocytes Percent Auto 32.2 % (18.3-44.2); Mean Corpuscular HGB Conc 33.7 g/dl (32-36); Mean Corpuscular Hemoglobin 31.8 pg (26-34); Mean Corpuscular Volume 94.5 fl (80-100); Mean Platelet Volume 9.7 fl (7.4-10.4); Monocytes Absolute Auto 0.8 K/mm3 (0.1-0.6); Monocytes Percent Auto 8.6 % (2.6-8.5); Neutrophils Absolute Auto 5.3 K/mm3 (1.3-6.7); Platelet Count Result 146 k/mm3 (150-375); Red Blood Count 4.37 M/mm3 (4.6-6.20); Red Cell Distribution Width 13.5 % (11.5-14.5); White Blood Count 9.3 K/mm3 (4.5-10.0)
[2022-04-06 23:54] LABS: Appearance Urine Clear (Clear); Bilirubin Urine 1+ (Negative); Blood Urine 1+ (Negative); Color Urine Yellow (Yellow); Glucose Urine UA Negative (Negative); Ketones Urine Negative (Negative); Leukocyte Esterase Ur Negative LEU/UL (Negative); Nitrate Urine Negative (Negative); Protein Urine 1+ mg/dL (Negative); Specific Grav Ur 1.015 (1.001-1.035)
[2022-04-07] VITALS: PULSE 91; RESP 12; O2SAT 94
[2022-04-07] LABS: Alanine Aminotransferase 91 U/L (6-50); Albumin Level 4.4 g/dL (3.5-5.1); Alkaline Phosphatase 78 U/L (38-126); Anion Gap 12 mmol/L (8-16); Aspartate Amino Transferase 139 U/L (17-59); Blood Urea Nitrogen 15 mg/dL (9-20); Calcium 8.8 mg/dL (8.4-10.2); Carbon Dioxide 27 mmol/L (22-30); Chloride 102 mmol/L (98-107); Estimated CRCL calculation 91 ml/min; Estimated Glomerular Filt Rate > 60; Glucose 97 mg/dL (65-110); Potassium 4.2 mmol/L (3.4-5.0); Sodium 141 mmol/L (137-145)
[2022-04-07 00:01] LABS: Bacteria Urine Trace /hpf; Mucus Urine Rare /lpf; Squamous Epithelial Cell Urine Rare /hpf (Few); WBC Urine 0-3 /hpf
[2022-04-07 00:02] LABS: Add Urine Microscopic? YES
--- NOTE | 2022-04-07 00:05 | ED.ANXIETY ---
HPI - Anxiety General Chief Complaint: Anxiety Stated Complaint: ETOH, PANIC ATTACK Time Seen by Provider: 04/06/22 23:14 Source: patient Mode of arrival: EMS Limitations: intoxication History of Present Illness HPI narrative: This is a 56-year-old male that presents to the emergency department for concern of withdrawal. Reports he will binge alcohol for a couple of days and then when he stops drinking he has withdrawal. Reports history of seizures due to withdrawal. He was concerned he was going to have a seizure which prompted him to be seen tonight. Reports anxiety, paresthesias, tremors, visual disturbances and nausea. Denies vomiting, or focal numbness or weakness. Related Data Allergies Allergy/AdvReac Type Severity Reaction Status Date / Time No Known Allergies Allergy Verified 04/06/22 23:01 Review of Systems Review of Systems: CONSTITUTIONAL: Denies fever CARDIOVASCULAR: Denies chest pain RESPIRATORY: Denies dyspnea. GASTROINTESTINAL: Reports nausea. Denies abdominal pain, vomiting, or diarrhea. PSYCHIATRIC: Reports anxiety All systems reviewed & are unremarkable except as noted in HPI and below PMFSH Past Medical History Medical History Alcohol abuse Anxiety Asthma Tobacco use Surgical History Surgical History No pertinent past surgical history Family History Family History (Updated 09/16/21 @ 23:09 by Gretchen Lynn PA-C) Other Alcoholism Chronic obstructive pulmonary disease Social History Social History (Updated 09/16/21 @ 23:10 by Gretchen Lynn PA-C) Social History: Surrogate decision maker: Brandy Deshpande (mother) or Kerrie Sanchez (girlfriend). Code status: Full code. Smoking packs per day: 1 Smoking cigarettes per day: 20.0 Years smoked: 35 Smoking pack-years: 35.00 Smoking status: Current every day smoker Tobacco type: cigarettes Alcohol intake: current Alcohol use details: Longstanding history of alcohol abuse. Patient typically drinks vodka. Unable to qualify at this time. Substance use: never Substance use type: does not use Additional living arrangements comments: The patient lives with his girlfriend in a basement apartment in his mother's home. 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 Exam Narrative: GENERAL: Well-appearing, well-nourished, and in no acute distress. HEAD: Normocephalic, atraumatic. EYES: PERRLA and EOMI. ENT: Nares clear, no rhinorrhea or epistaxis. Mucous membranes moist. Oropharynx without tonsillar hypertrophy exudate or other lesions. Bilateral TMs pearly horton non-bulging NECK: Supple. No adenopathy or masses. CHEST: Clear to auscultation. No respiratory distress. No wheezes rales or rhonchi HEART: Regular rate and rhythm. No murmur heard. Normal peripheral pulses. ABDOMEN: Soft, nontender, nondistended, normal active bowel sounds. EXTREMITIES: Normal range of motion. No edema. SKIN: Warm, dry, no rash. NEURO: No focal deficits. Alert and oriented x3. PSYCH: Normal mood and affect Course Vital Signs Vital signs: Vital Signs Temperature 97.6 F 04/06/22 22:53 Pulse Rate 72 04/06/22 22:53 Respiratory Rate 12 04/06/22 22:53 Blood Pressure 110/88 04/06/22 22:53 Pulse Oximetry 97 04/06/22 22:53 Oxygen Delivery Room Air 04/06/22 22:53 Temperature 97.6 F 04/06/22 22:53 Pulse Rate 77 04/07/22 00:46 Respiratory Rate 14 04/07/22 00:46 Blood Pressure 108/83 04/07/22 00:46 Pulse Oximetry 97 04/07/22 00:46 Oxygen Delivery Room Air 04/06/22 22:53 MDM - Anxiety MDM Narrative Medical decision making narrative: Patient presented to the ER for concern for impending alcohol withdrawal. Reportedly patient has been on a binge for the last couple of days. Today he felt as though he was having beginning symptoms of withdrawal. His vitals are stable. CBC is without leukocytosis. Does show normocyti
[2022-04-07 00:06] LABS: Prothrombin Time 12.6 Seconds (11.1-14.7)
[2022-04-07 00:07] LABS: Partial Thromboplastin Time 27.7 SECONDS (22.3-36.8)
[2022-04-07 00:10] LABS: Amphetamine Screen Urine Negative (Negative); Barbiturate Screen Urine Negative (Negative); Benzodiazepines Screen Urine Negative (Negative); Cannabinoid Screen Urine Negative (Negative); Cocaine Screen Urine Negative (Negative); Methadone Screen Urine Negative (Negative); Opiate Screen Urine Negative (Negative); Phencyclidine Screen Urine Negative (Negative)
[2022-04-07 00:18] LABS: Troponin I < 0.012 ng/mL (0.000-0.034)
[2022-04-07 00:21] LABS: Ethanol 334 mg/dL (<10)
[2022-04-07 00:26] VITALS: PULSE 82; RESP 12; O2SAT 95
[2022-04-07] MEDS: SODIUM CHLORIDE 0.9% IV 1,000 ML 999 ML IV CONT (00:27)
[2022-04-07] MEDS: PANTOPRAZOLE SODIUM IV 40 MG VIAL IV PUSH (00:28)
[2022-04-07] MEDS: ONDANSETRON INJ 4 MG/2 ML VIAL IV PUSH (00:28)
[2022-04-07 00:30] VITALS: PULSE 78; RESP 13; O2SAT 95
[2022-04-07 00:31] VITALS: BP 114/84; PULSE 78; RESP 13; O2SAT 94
[2022-04-07 00:45] VITALS: PULSE 71; RESP 12; O2SAT 98
[2022-04-07 00:46] VITALS: BP 108/83; PULSE 77; RESP 14; O2SAT 97
--- NOTE | 2022-04-07 01:08 | PC.NURSE ---
Pt walked out of room and stormed out of the ER. RN asked pt to stop to see if IV was still in place. PT had removed IV himself and left it laying on the stretcher.
== END 2022-04-07 01:10 | disposition left against medical advice (07) ==
PROVIDERS: Physician Assistant; Emergency Provider General Practice; PCP Family Medicine Adolescent Medicine
DX: F10.129 Alcohol abuse with intoxication, unspecified (principal); Y90.9 Presence of alcohol in blood, level not specified; F17.210 Nicotine dependence, cigarettes, uncomplicated
CPT/HCPCS: 36415; 70450; 71046; 80053; 80307; 81001; 84443; 84484; 85025; 85055; 85610; 85730; 93005; 96361; 96374; 96375; 99284; C9113; J2405; J7030

== ENCOUNTER 2022-08-29 21:34 | Inpatient (IN) | payer OTHER, SELFPAY ==
[2022-08-29] VITALS (16 sets, daily range): BP systolic 107–117; BP diastolic 74–82; PULSE 73–111; RESP 9–20; TEMP 36.6–36.8; O2SAT 91–100
--- NOTE | ~2022-08-29 | US_ITS ---
US right upper quadrant INDICATION: Related liver function tests PROCEDURE: Realtime right upper abdominal ultrasound. COMPARISON: No prior studies for comparison. FINDINGS: The pancreas is normal without focal mass or pancreatic ductal dilation. Liver echotexture is increased, consistent with fatty infiltration. There is normal directional flow in the portal ve in. The gallbladder is normal without stones, gallbladder wall thickening or pericholecystic fluid. Comm on bile duct measures 6 mm. No sonographic Warner's sign. Incidental note is made of a right renal c yst measuring 12 mm. IMPRESSION: 1: Hepatic steatosis. Reviewed, dictated and finalized at location B. IMPRESSION: 1: Hepatic steatosis.
--- NOTE | 2022-08-29 21:44 | ECG_ITS ---
Measurements Intervals [place] Rate: 82 P: 77 VA: 102 QRS: 83 QRSD: 110 T: 83 QT: 365 QTc: 428 Interpretive Statements SINUS RHYTHM WITH SHORT VA INTERVAL NONSPECIFIC ST & T-WAVE ABNORMALITY COMPARED TO ECG 04/06/2022 23:27:20 NO SIGNIFICANT CHANGES Electronically Signed On 08-30-2022 14:03:35 CDT by Oskar Edward M.D.
[2022-08-29 22:17] LABS: Basophils Percent Auto 0.4 % (0.2-1.2); Eosinophils Percent Auto 0.2 % (0-4.4); Hematocrit 43.3 % (42.0-52.0); Hemoglobin 15.1 g/dL (14.0-18.0); Immature Granulocyte Absolute 0.02 K/mm3 (0.00-0.031); Immature Granulocyte Percent A 0.2 % (0-0.5); Immature Platelet Fraction Pct 5.8 % (0.9-11.2); Lymphocytes Absolute Auto 1.96 K/mm3 (0.9-3.2); Lymphocytes Percent Auto 24.1 % (18.3-44.2); Mean Corpuscular HGB Conc 34.9 g/dl (32-36); Mean Corpuscular Hemoglobin 32.7 pg (26-34); Mean Corpuscular Volume 93.7 fl (80-100); Mean Platelet Volume 11.5 fl (7.4-10.4); Monocytes Absolute Auto 0.4 K/mm3 (0.1-0.6); Monocytes Percent Auto 4.4 % (2.6-8.5); Neutrophils Absolute Auto 5.8 K/mm3 (1.3-6.7); Neutrophils Percent Auto 70.7 % (45.5-73.1); Platelet Count Result 114 k/mm3 (150-375); Red Blood Count 4.62 M/mm3 (4.6-6.20); Red Cell Distribution Width 15.2 % (11.5-14.5); White Blood Count 8.1 K/mm3 (4.5-10.0)
--- NOTE | 2022-08-29 22:18 | ED.GENADULT ---
HPI - General Adult General Chief complaint: Alcohol Stated complaint: etoh Time Seen by Provider: 08/29/22 21:56 History of Present Illness HPI narrative: Patient is a 57-year-old gentleman who presents emergency department with chief complaint of alcohol withdrawal. The patient reports that he goes on binges of drinking alcohol and drinks about a status a day of alcohol. The patient states that his last drink was yesterday and reports that he is decided he wants to stop drinking patient states that he feels shaky and anxious and is concerned because he has had prior seizures before whenever he stops drinking. Patient denies suicidal or homicidal ideation reports that he is currently in a treatment group Related Data Allergies Allergy/AdvReac Type Severity Reaction Status Date / Time No Known Allergies Allergy Verified 04/06/22 23:01 Review of Systems Review of Systems: A 10 system review of systems was completed on the patient and is negative except for what is stated in the HPI. Nursing and ancillary documentation was reviewed. [facility] Past Medical History Medical History Alcohol abuse Anxiety Asthma Tobacco use Surgical History Surgical History No pertinent past surgical history Family History Family History Other Alcoholism Chronic obstructive pulmonary disease Social History Social History Social History: Surrogate decision maker: Brandy Deshpande (mother) or Kerrie Sanchez (girlfriend). Code status: Full code. Smoking packs per day: 1 Smoking cigarettes per day: 20.0 Years smoked: 35 Smoking pack-years: 35.00 Smoking status: Current every day smoker Tobacco type: cigarettes Alcohol intake: current Alcohol use details: Longstanding history of alcohol abuse. Patient typically drinks vodka. Unable to qualify at this time. Substance use: never Substance use type: does not use Additional living arrangements comments: The patient lives with his girlfriend in a basement apartment in his mother's home. 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 Exam Narrative: GENERAL: Well-appearing, well-nourished, and in no acute distress. HEAD: Normocephalic, atraumatic. EYES: PERRLA and EOMI. ENT: Nares clear, no rhinorrhea or epistaxis. Mucous membranes moist. NECK: Supple. CHEST: Clear to auscultation. No respiratory distress. HEART: Regular rate and rhythm. No murmur heard. Normal peripheral pulses. ABDOMEN: Soft, nontender, nondistended, normal active bowel sounds. EXTREMITIES: Normal range of motion. No edema. SKIN: Warm, dry, no rash. NEURO: No focal deficits. Alert and oriented x3. PSYCH: Normal mood and affect. Course Course Emergency Course: While the patient has been allowed to sober up in the emergency department he has started to become more tremulous and the patient is requesting medical detoxification of his alcohol abuse. He does have a significant history of withdrawal seizures. Patient case was discussed with the hospitalist who graciously excepted the patient Vital Signs Vital signs: Vital Signs Pulse Rate 111 H 08/29/22 21:43 Respiratory Rate 13 08/29/22 21:43 Temperature 36.8 C 08/29/22 22:18 Pulse Rate 84 08/30/22 05:01 Respiratory Rate 13 08/30/22 05:01 Blood Pressure 123/91 H 08/30/22 05:01 Pulse Oximetry 98 08/30/22 05:01 Oxygen Delivery Room Air 08/29/22 22:18 Medical Decision Making Vital Signs Vital Signs: Vital Signs Pulse Rate 111 H 08/29/22 21:43 Respiratory Rate 13 08/29/22 21:43 Temperature 36.8 C 08/29/22 22:18 Pulse Rate 84 08/30/22 05:01 Respiratory Rate 13 08/30/22 05:01 Blood Pressure 123/91 H 08/30/22 05:01 Pulse Oximetry 98 08/30/22 05:01 Oxygen Delivery Room Air 1
[2022-08-29 22:30] LABS: Partial Thromboplastin Time 24.8 SECONDS (22.3-36.8); Prothrombin Time 12.4 Seconds (11.1-14.7)
[2022-08-29] MEDS: THIAMINE HCL 200 MG/2 ML VIAL 100 MG IV PUSH (22:33)
[2022-08-29] MEDS: LORazepam INJ (*CRX) 2 MG/ML VIAL 1 MG IV PUSH (22:33)
[2022-08-29] MEDS: SODIUM CHLORIDE 0.9% IV 1,000 ML 999 ML IV CONT (22:35)
[2022-08-29 22:58] LABS: Ethanol 373 mg/dL (<10)
[2022-08-29 23:09] LABS: Alanine Aminotransferase 90 U/L (6-50); Albumin Level 4.8 g/dL (3.5-5.1); Alkaline Phosphatase 63 U/L (38-126); Anion Gap 23 mmol/L (8-16); Aspartate Amino Transferase 142 U/L (17-59); Bilirubin,Total 1.1 mg/dL (0.2-1.3); Blood Urea Nitrogen 19 mg/dL (9-20); Calcium 8.6 mg/dL (8.4-10.2); Carbon Dioxide 24 mmol/L (22-30); Chloride 94 mmol/L (98-107); Estimated Glomerular Filt Rate > 60; Glucose 214 mg/dL (65-110); Sodium 141 mmol/L (137-145)
[2022-08-30] VITALS (42 sets, daily range): BP systolic 118–153; BP diastolic 83–137; PULSE 67–107; RESP 11–21; TEMP 36.5–36.8; O2SAT 91–100; BMI 19.8
--- NOTE | 2022-08-30 03:22 | PC.NURSE ---
patient asked to void several times and has refused a catheter.
[2022-08-30 03:41] LABS: Add Urine Microscopic? YES; Appearance Urine Clear (Clear); Bilirubin Urine Negative (Negative); Blood Urine 2+ (Negative); Color Urine Yellow (Yellow); Glucose Urine UA 2+ mg/dL (Negative); Ketones Urine Trace mg/dL (Negative); Leukocyte Esterase Ur Negative LEU/UL (Negative); Mucus Urine Rare /lpf; Nitrate Urine Negative (Negative); Protein Urine 2+ mg/dL (Negative); Specific Grav Ur 1.027 (1.001-1.035); Squamous Epithelial Cell Urine Rare /hpf (Few); WBC Urine 0-3 /hpf
[2022-08-30 05:43] LABS: Amphetamine Screen Urine Negative (Negative); Barbiturate Screen Urine Negative (Negative); Benzodiazepines Screen Urine Negative (Negative); Cannabinoid Screen Urine Negative (Negative); Cocaine Screen Urine Negative (Negative); Methadone Screen Urine Negative (Negative); Opiate Screen Urine Negative (Negative); Phencyclidine Screen Urine Negative (Negative)
[2022-08-30] MEDS: THIAMINE HCL INJ 100 MG, FOLIC ACID INJ 1 MG, MULTIVITAMINS-12 INJ VIAL 1 5 ML, MULTIVI... 125 MG IV CONT (08:00)
[2022-08-30] MEDS: ONDANSETRON INJ 4 MG/2 ML VIAL IV PUSH ×3 (08:04→18:25)
[2022-08-30] MEDS: THIAMINE HCL 200 MG/2 ML VIAL 100 MG IV PUSH (09:47)
[2022-08-30 09:49] LABS: Magnesium 1.9 mg/dL (1.6-2.3)
--- NOTE | 2022-08-30 11:13 | ADMGEN ---
This patient, Neli Deshpande, was admitted to [facility] Surg Room 324-02 at 0830. Patient/family oriented to hospital policies and general routines including ID bracelet, bed and alarms, visiting hours, pain management, procedures, bathroom and other care routines, personal items, smoking policy, room service/diet, and visiting hours. Information on how to activate the Rapid Response Team has been discussed. Patient/Family are encouraged to report perceived risks to care and to ask questions if they do not understand what they are told or what they should do.
[2022-08-30 11:23] LABS: Glucose Point of Care 110 mg/dl (65-105)
[2022-08-30] MEDS: chlordiazePOXIDE (*CRX) 25 MG CAPSULE PO ×2 (11:43→18:25)
[2022-08-30] MEDS: LORazepam INJ (*CRX) 2 MG/ML VIAL IV PUSH ×3 (11:43→21:30)
--- NOTE | 2022-08-30 15:06 | PM.IMHP ---
H&P: HPI History of Present Illness Date/Time: 08/30/22 15:06 Chief Complaint: Shaky Narrative: 57-year-old male with a history of alcohol abuse, anxiety, asthma and tobacco abuse who presents emergency room with concerns for alcohol withdrawal. Patient has long history of alcohol abuse for greater than 35 years. He initially states that he drinks a 5th a day 4-5 days in a row but then can have months of sobriety. He was last hospitalized in November at [facility]. He went to [facility] for alcohol rehab after that hospitalization. He has been doing group therapy. Since November however he has had 3 bouts of binge drinking. Patient was sober for about 3 months up until about 3 days prior to admission when he began to binge drink. Patient states he has a history of seizures when he stops drinking. He does complain of some slight shortness of breath. Also states he is having issues with swallowing although seems to be vague with this. He has been feeling shaky, agitated and dehydrated. No nausea, vomiting, abdominal pain or diarrhea. No chest pain or palpitations. He has morning chronic cough. No dysuria or hematuria. Patient appears to have these episodes of binge drinking and does well stopping on his own. He is unclear on why he decided to come to the emergency room this time. He is seeing hallucinations today. In the emergency room, patient was mildly tachycardic. Platelet count slightly low. Alcohol level was 373. His comprehensive metabolic panel showed glucose of 214, AST 142 and ALT 90. Despite the normal electrolytes, he did have an elevated anion gap. Urinalysis did show trace ketones. Urine drug screen was negative. He was started on banana bag. He was given Zofran. He was admitted for further care. Review of Systems Review of Systems: All systems reviewed & are unremarkable except as noted in HPI and below PMFSH Past Medical History Medical History Alcohol abuse Anxiety Asthma Tobacco use Surgical History Surgical History No pertinent past surgical history Family History Family History Other Alcoholism Chronic obstructive pulmonary disease Social History Social History Social History: Surrogate decision maker: Brandy Deshpande (mother) or Kerrie Sanchez (girlfriend). Code status: Full code. Smoking packs per day: 1 Smoking cigarettes per day: 20.0 Years smoked: 35 Smoking pack-years: 35.00 Smoking status: Current every day smoker Alcohol intake: current Alcohol use details: Longstanding history of alcohol abuse. Patient typically drinks vodka. Unable to qualify at this time. Substance use: never Substance use type: does not use Has the Lack of Transportation Kept You From Medical Appointments or From Getting Medications?: No Within the Past 12 Months, Were You Worried Whether Your Food Would Run Out Before You Got Money to Buy More?: Never True What is Your Housing Situation Today?: I Have Housing Are You Worried That in the Next 2 Months, You May Not Have Your Own Housing to Live In?: No Do You Have Trouble Paying Your Heating Or Electricity Bill?: No Do You Have Trouble Paying For Medicines?: No Are You Currently Unemployed and Looking for Work?: No Highest Level of Education Completed: Trade/Vocational Certificate Do You Have Trouble With Childcare or the Care of a Family Member?: No Additional living arrangements comments: The patient lives with his girlfriend in a basement apartment in his mother's home. 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 Spiritual care concerns: No Meds Home Medications and Allergies Home Medications Medication Instructions Recorded Confirmed Type folic acid 1 mg tablet 1 mg PO DAILY #30 tabs 09/18/21 08/30/22 Rx thiamine [facility]
[2022-08-30 16:14] LABS: Glucose Point of Care 131 mg/dl (65-105)
[2022-08-30] MEDS: SODIUM CHLORIDE 0.9% IV 1,000 ML 100 ML IV CONT (16:54)
[2022-08-30] MEDS: PANTOPRAZOLE 40 MG TABLET PO (16:54)
[2022-08-30 22:59] LABS: Glucose Point of Care 83 mg/dl (65-105)
[2022-08-31] VITALS: BP 137/85
[2022-08-31] MEDS: chlordiazePOXIDE (*CRX) 25 MG CAPSULE PO ×4 (02:26→17:07)
[2022-08-31] MEDS: SODIUM CHLORIDE 0.9% IV 1,000 ML 100 ML IV CONT (02:30)
[2022-08-31] MEDS: LORazepam INJ (*CRX) 2 MG/ML VIAL IV PUSH ×4 (04:14→16:24)
[2022-08-31 05:14] VITALS: BP 153/86; PULSE 75; RESP 18; TEMP 36.8; O2SAT 97
[2022-08-31] MEDS: LORazepam INJ (*CRX) 2 MG/ML VIAL 1 MG IV PUSH (06:03)
[2022-08-31 07:31] LABS: Basophils Percent Auto 0.3 % (0.2-1.2); Eosinophils Absolute Auto 0.1 K/mm3 (0-0.3); Eosinophils Percent Auto 0.9 % (0-4.4); Hematocrit 39.7 % (42.0-52.0); Immature Granulocyte Absolute 0.03 K/mm3 (0.00-0.031); Immature Granulocyte Percent A 0.5 % (0-0.5); Immature Platelet Fraction Pct 5.6 % (0.9-11.2); Lymphocytes Absolute Auto 1.52 K/mm3 (0.9-3.2); Lymphocytes Percent Auto 23.2 % (18.3-44.2); Mean Corpuscular HGB Conc 35.3 g/dl (32-36); Mean Corpuscular Volume 90.6 fl (80-100); Monocytes Absolute Auto 0.5 K/mm3 (0.1-0.6); Monocytes Percent Auto 7.8 % (2.6-8.5); Neutrophils Absolute Auto 4.4 K/mm3 (1.3-6.7); Neutrophils Percent Auto 67.3 % (45.5-73.1); Platelet Count Result 85 k/mm3 (150-375); Red Blood Count 4.38 M/mm3 (4.6-6.20); Red Cell Distribution Width 14.7 % (11.5-14.5); White Blood Count 6.6 K/mm3 (4.5-10.0)
[2022-08-31 07:38] LABS: Alanine Aminotransferase 74 U/L (6-50); Alkaline Phosphatase 77 U/L (38-126); Anion Gap 16 mmol/L (8-16); Aspartate Amino Transferase 90 U/L (17-59); Bilirubin,Total 2.5 mg/dL (0.2-1.3); Blood Urea Nitrogen 11 mg/dL (9-20); Calcium 9.3 mg/dL (8.4-10.2); Carbon Dioxide 24 mmol/L (22-30); Chloride 97 mmol/L (98-107); Estimated CRCL calculation 114 ml/min; Estimated Glomerular Filt Rate > 60; Glucose 113 mg/dL (65-110); Potassium 3.4 mmol/L (3.4-5.0); Sodium 137 mmol/L (137-145)
--- NOTE | 2022-08-31 07:46 | PC.NURSE ---
Pt has been having difficulty with D/Ts. Cwal score is up to 16. Increasingly trying to get out of bed and and trying to manipulate staff into turning off his bedrest. at florencio 0530 pt received a one time additional dose of ativan.
[2022-08-31] MEDS: THIAMINE HCL 200 MG/2 ML VIAL 100 MG IV PUSH (08:19)
[2022-08-31] MEDS: FOLIC ACID 1 MG TABLET PO (09:32)
[2022-08-31] MEDS: PANTOPRAZOLE 40 MG TABLET PO (09:32)
--- NOTE | 2022-08-31 10:44 | PC.NURSE ---
pt was attempting to get out of bed for about the 10th time in 30 mins at 1012am, CNAs were in room trying to get pt back in bed. pt became aggressive towards staff and code williams was called. this nurse at bedside with other staff. security arrive, and house sup. house sup attempted to call provider with no answer. pt was given ativan prn per protocol related to ciwa score at 0820am. It is currently 1047am and security and cyber operator/sitter are still at bedside. another call placed to dr. Plascencia, no answer. call back from Dr. Plascencia at 1050am and explained current condition. Dr. Plascencia stated he will come and take a look at him. Staff still at bedside for pt safety.
--- NOTE | 2022-08-31 11:03 | PM.IMPN ---
Progress Note: A&P Assessment and Plan (1) Alcohol withdrawal: Code(s): F10.239 - Alcohol dependence with withdrawal, unspecified Status: Acute Assessment and Plan: Patient having more symptoms of withdrawal now that his intoxication has waned. Schedule Librium. Continue to have Ativan available as needed. (2) Alcoholic intoxication: Code(s): F10.929 - Alcohol use, unspecified with intoxication, unspecified Status: Acute Assessment and Plan: Resolving. (3) Alcohol abuse: Code(s): F10.10 - Alcohol abuse, uncomplicated Status: Acute Assessment and Plan: Patient was educated about the benefits of abstaining from alcohol use. Continue thiamine and folate. Continue CIWA protocol. Treatment as above. (4) Thrombocytopenia: Code(s): D69.6 - Thrombocytopenia, unspecified Status: Acute Assessment and Plan: Patient has a history of thrombocytopenia. Platelet count was low on admission is dropped to 85 K. felt related to the toxic effects of alcohol. Upper quadrant ultrasound shows hepatic steatosis but no cirrhosis. Continue to monitor. (5) Elevated LFTs: Code(s): R79.89 - Other specified abnormal findings of blood chemistry Status: Acute Assessment and Plan: AST/ ALT improving. Total bilirubin level has climbed to 2.5. Right upper quadrant ultrasound showing hepatic steatosis. Still feel related to alcohol hepatitis. Will follow. (6) Tobacco use: Code(s): Z72.0 - Tobacco use Status: Acute Assessment and Plan: Educated about the benefits of smoking cessation (7) Metabolic acidosis: Code(s): E87.20 - Acidosis, unspecified Status: Acute Assessment and Plan: AG has closed. [place] related to ketosis and dehydration. With IV fluids, AG has closed. Eating better so geeta let IV fluids run out. Subjective Date/time seen: 08/31/22 11:03 Interval history: 57yo male with alcoholism here for intoxication and now with withdrawal Patient alert and mostly oriented. He is eating better. Denies hallucinations but is confused and was trying to leave the room. Exam Narrative: AF 98.3 153/86 75 18 97% ra Gen - NARD Chest - CTA bilaterally CV - RRR. S1-S2 Abd - soft. Nontender. Nondistended. Positive bowel sounds. No organomegaly or masses. Ext - no pedal edema. Neuro - patient is alert and oriented x3 (not location) but confused at times. Speech is clear. Psych - normal mood and affect. Patient is pleasant and cooperative. Skin - warm and dry. Objective Data Vital Signs Vital Signs: Vital Signs - 24 hr 08/30/22 11:49 08/30/22 14:00 08/30/22 12:00 Temperature 98.2 F Pulse Rate 95 107 H Respiratory Rate 20 Blood Pressure 140/94 H Pulse Oximetry 100 Oxygen Delivery Room Air 08/30/22 16:00 08/30/22 21:34 08/30/22 20:00 Temperature 98.2 F Pulse Rate 97 89 Respiratory Rate 18 Blood Pressure 137/85 137/85 Pulse Oximetry 96 Oxygen Delivery 08/30/22 20:00 08/31/22 00:00 08/31/22 05:14 Temperature 98.3 F Pulse Rate 89 75 Respiratory Rate 18 18 Blood Pressure 137/85 153/86 H Pulse Oximetry 96 97 Oxygen Delivery Room Air 08/31/22 08:10 Temperature Pulse Rate Respiratory Rate Blood Pressure Pulse Oximetry Oxygen Delivery Room Air Intake/Output Intake/Output: Intake & Output 08/28/22 08/29/22 08/30/22 08/31/22 23:59 23:59 23:59 23:59 Intake Total 1000 1270 1450 Output Total 500 Balance 9950 652 6141 Meds/Results Medications: Active Medications Generic Name Dose Route Start Last Admin Trade Name Freq PRN Reason Stop Dose Admin Chlordiazepoxide HCl 25 mg 08/30/22 05:58 08/31/22 05:08 Chlordiazepoxide (*Crx) 25 Mg Capsule PO 25 mg Q6H PRN Administration Withdrawal Folic Acid 1 mg 08/31/22 09:00 08/31/22 09:32 Folic Acid 1 Mg Tablet PO 1 mg D
[2022-08-31 11:54] LABS: Glucose Point of Care 132 mg/dl (65-105)
[2022-08-31 14:00] VITALS: BP 134/100; PULSE 127; RESP 18; TEMP 36.6; O2SAT 99
[2022-08-31] MEDS: NICOTINE (*PBKC) 21 MG PATCH 1 PATCH TRANSDERM (14:37)
[2022-08-31 16:00] VITALS: BP 134/100
[2022-08-31 17:52] LABS: Glucose Point of Care 153 mg/dl (65-105)
--- NOTE | 2022-08-31 19:37 | PM.EVENT ---
Event Note Event Note Event Note: code williams was called as the patient was delusional. The patient thought that he was at his parents house any [facility] and [facility] a [facility]. His nicotine patch was found in the bed. The patient was shaking the nurse telling her that he was going to get out here. Demetri kramer was called and the patient has no idea where he is. The patient thinks he is at home. The patient is talking about that somebody took some of his things and that is journals are gone anything sees at home. We tried to re orientated him that he is in the hospital. He also was saying that he wanted a cigarette knee was going to get out a urine go smoke a cigarette. The patient's hands were shaking at this time. And he is delusional. I increased his Librium to the maximum a amount that he can have.
[2022-08-31 20:00] VITALS: PULSE 80
[2022-08-31 21:50] VITALS: BP 155/100; PULSE 105; RESP 16; TEMP 36.4; O2SAT 98
[2022-08-31] MEDS: traZODone HCL 50 MG TABLET PO (22:17)
[2022-09-01] VITALS (8 sets, daily range): BP systolic 106–120; BP diastolic 71–79; PULSE 84–107; RESP 16–18; TEMP 36.3–36.6; O2SAT 98–100
[2022-09-01] MEDS: chlordiazePOXIDE (*CRX) 25 MG CAPSULE 50 MG PO ×5 (00:50→23:49)
[2022-09-01 02:43] LABS: Glucose Point of Care 109 mg/dl (65-105)
[2022-09-01 06:51] LABS: Hematocrit 37.8 % (42.0-52.0); Hemoglobin 13.4 g/dL (14.0-18.0); Immature Platelet Fraction Pct 7.5 % (0.9-11.2); Mean Corpuscular HGB Conc 35.4 g/dl (32-36); Mean Corpuscular Hemoglobin 33.6 pg (26-34); Mean Corpuscular Volume 94.7 fl (80-100); Mean Platelet Volume 10.7 fl (7.4-10.4); Platelet Count Result 86 k/mm3 (150-375); Red Blood Count 3.99 M/mm3 (4.6-6.20); Red Cell Distribution Width 14.8 % (11.5-14.5); White Blood Count 5.7 K/mm3 (4.5-10.0)
[2022-09-01 06:59] LABS: Alanine Aminotransferase 64 U/L (6-50); Albumin Level 4.8 g/dL (3.5-5.1); Alkaline Phosphatase 64 U/L (38-126); Anion Gap 16 mmol/L (8-16); Aspartate Amino Transferase 69 U/L (17-59); Bilirubin,Total 1.8 mg/dL (0.2-1.3); Blood Urea Nitrogen 13 mg/dL (9-20); Calcium 9.3 mg/dL (8.4-10.2); Carbon Dioxide 22 mmol/L (22-30); Chloride 100 mmol/L (98-107); Estimated CRCL calculation 99 ml/min; Estimated Glomerular Filt Rate > 60; Glucose 96 mg/dL (65-110); Sodium 138 mmol/L (137-145)
[2022-09-01 07:43] LABS: Glucose Point of Care 112 mg/dl (65-105)
[2022-09-01] MEDS: NICOTINE (*PBKC) 21 MG PATCH 1 PATCH TRANSDERM (08:27)
[2022-09-01] MEDS: POTASSIUM CHLORIDE 20 MEQ TABLET 40 MEQ PO (08:27)
[2022-09-01] MEDS: THIAMINE HCL 100 MG TABLET PO (08:27)
[2022-09-01] MEDS: PANTOPRAZOLE 40 MG TABLET PO (08:27)
[2022-09-01] MEDS: FOLIC ACID 1 MG TABLET PO (08:27)
--- NOTE | 2022-09-01 09:45 | PC.NURSE ---
pt attempted to get out of bed and exit out the room door. pt remains unsteady on his feet, and very confused at times. states he needs to get to the basement. pt redirected, and after multiple attempts, pt is back in bed drinking coffee. sitter at bedside.
[2022-09-01 11:58] LABS: Glucose Point of Care 103 mg/dl (65-105)
--- NOTE | 2022-09-01 12:09 | PM.IMPN ---
Progress Note: A&P Assessment and Plan (1) Alcohol withdrawal: Code(s): F10.239 - Alcohol dependence with withdrawal, unspecified Status: Acute Assessment and Plan: Patient dveloped withdrawal symptoms now that his intoxication has waned. We scheduled Librium and dose increased last night. More stable. Continue to have Ativan available as needed. Wean librium as tolerated. (2) Alcoholic intoxication: Code(s): F10.929 - Alcohol use, unspecified with intoxication, unspecified Status: Acute Assessment and Plan: Resolving. (3) Alcohol abuse: Code(s): F10.10 - Alcohol abuse, uncomplicated Status: Acute Assessment and Plan: Patient was educated about the benefits of abstaining from alcohol use. Continue thiamine and folate. Continue CIWA protocol. Treatment as above. (4) Thrombocytopenia: Code(s): D69.6 - Thrombocytopenia, unspecified Status: Acute Assessment and Plan: Patient has a history of thrombocytopenia. Platelet count was low on admission and has dropped to 86K and now stable. felt related to the toxic effects of alcohol. Upper quadrant ultrasound shows hepatic steatosis but no cirrhosis. Continue to monitor. (5) Elevated LFTs: Code(s): R79.89 - Other specified abnormal findings of blood chemistry Status: Acute Assessment and Plan: AST/ ALT improving. Total bilirubin level climbed to 2.5 but better now. Right upper quadrant ultrasound showing hepatic steatosis. [place] elevated LFTs related to alcohol hepatitis. Will follow. (6) Tobacco use: Code(s): Z72.0 - Tobacco use Status: Acute Assessment and Plan: Educated about the benefits of smoking cessation (7) Metabolic acidosis: Code(s): E87.20 - Acidosis, unspecified Status: Acute Assessment and Plan: AG has closed. [place] related to ketosis and dehydration. With IV fluids, AG has closed. Eating better so geeta let IV fluids run out. Subjective Date/time seen: 09/01/22 12:09 Interval history: 57yo male with alcoholism here for intoxication and now with withdrawal Patient is alert and oriented. He denies hallucinations. His mom is in the room and allows me to provide an update to her which was done. He is requesting be up out of bed to walk in the halls. Librium was increased to 50 mg every 6 hours because of increasing agitation yesterday. Exam Narrative: AF 97.9 106/71 93 16 100% ra Gen - NARD Chest - lungs clear anteriorly, nml RR CV - RRR. S1-S2 Abd - soft. NT/ND. +BS Ext - no pedal edema. Neuro - AOx4. Speech is clear. Able to get out of bed without assistance Psych - normal mood and affect. Patient is pleasant and cooperative. Skin - warm and dry. Objective Data Vital Signs Vital Signs: Vital Signs - 24 hr 08/31/22 14:00 08/31/22 16:00 08/31/22 20:00 Temperature 98 F Pulse Rate 127 H Pulse Rate [Left Ulnar Auscultation] 80 Respiratory Rate 18 Blood Pressure 134/100 H 134/100 H Pulse Oximetry 99 Oxygen Delivery 08/31/22 21:50 09/01/22 00:00 09/01/22 04:00 Temperature 97.6 F Pulse Rate 105 H Pulse Rate [Left Ulnar Auscultation] 88 84 Respiratory Rate 16 Blood Pressure 155/100 H Pulse Oximetry 98 Oxygen Delivery 09/01/22 06:00 09/01/22 09:05 Temperature 97.9 F Pulse Rate 93 Pulse Rate [Left Ulnar Auscultation] Respiratory Rate 16 Blood Pressure 106/71 Pulse Oximetry 100 Oxygen Delivery Room Air Intake/Output Intake/Output: Intake & Output 08/29/22 08/30/22 08/31/22 09/01/22 23:59 23:59 23:59 23:59 Intake Total 1000 1270 3220 250 Output Total 500 1225 700 Balance 7083 490 7346 -450 Meds/Results Medications: Active Medications Generic Name Dose Route Start Last Admin Trade Name Freq PRN Reason Stop Dose Admin Chlordiazepoxide HCl 50 mg 09/01/22 00:00 09/01/22 11:42 Chlordiazepoxide (*Crx)
[2022-09-01 17:52] LABS: Glucose Point of Care 140 mg/dl (65-105)
[2022-09-01] MEDS: LORazepam INJ (*CRX) 2 MG/ML VIAL IV PUSH (21:55)
[2022-09-01] MEDS: traZODone HCL 50 MG TABLET PO (21:55)
[2022-09-02 04:00] VITALS: BP 84/48; PULSE 85
[2022-09-02] MEDS: chlordiazePOXIDE (*CRX) 25 MG CAPSULE 50 MG PO ×2 (05:14→11:15)
[2022-09-02 06:00] VITALS: BP 84/48; PULSE 88; RESP 20; TEMP 36.6; O2SAT 99
[2022-09-02 06:19] LABS: Anion Gap 16 mmol/L (8-16); Blood Urea Nitrogen 20 mg/dL (9-20); Calcium 8.9 mg/dL (8.4-10.2); Carbon Dioxide 21 mmol/L (22-30); Chloride 100 mmol/L (98-107); Estimated CRCL calculation 99 ml/min; Estimated Glomerular Filt Rate > 60; Glucose 112 mg/dL (65-110); Potassium 3.2 mmol/L (3.4-5.0); Sodium 137 mmol/L (137-145)
[2022-09-02] MEDS: SODIUM CHLORIDE 0.9% IV 1,000 ML 999 ML IV CONT (07:31)
[2022-09-02] MEDS: POTASSIUM CHLORIDE 20 MEQ TABLET 40 MEQ PO (08:15)
[2022-09-02] MEDS: THIAMINE HCL 100 MG TABLET PO (08:15)
[2022-09-02] MEDS: FOLIC ACID 1 MG TABLET PO (08:15)
[2022-09-02] MEDS: NICOTINE (*PBKC) 21 MG PATCH 1 PATCH TRANSDERM (08:15)
[2022-09-02] MEDS: PANTOPRAZOLE 40 MG TABLET PO (08:15)
[2022-09-02 09:08] VITALS: O2SAT 99
[2022-09-02 11:54] LABS: Glucose Point of Care 117 mg/dl (65-105)
[2022-09-02 14:00] VITALS: BP 102/72; PULSE 82; RESP 18; TEMP 36.4; O2SAT 98
--- NOTE | 2022-09-02 14:01 | PM.DS ---
DS: Admitting Diagnosis Discharge Date 09/02/22 Admitting Diagnosis Alcohol intoxication DS: Discharge Diagnosis Discharge Diagnosis (1) Alcohol withdrawal: Code(s): F10.239 - Alcohol dependence with withdrawal, unspecified Status: Acute (2) Alcoholic intoxication: Code(s): F10.929 - Alcohol use, unspecified with intoxication, unspecified Status: Acute (3) Alcohol abuse: Code(s): F10.10 - Alcohol abuse, uncomplicated Status: Acute (4) Thrombocytopenia: Code(s): D69.6 - Thrombocytopenia, unspecified Status: Acute (5) Elevated LFTs: Code(s): R79.89 - Other specified abnormal findings of blood chemistry Status: Acute (6) Tobacco use: Code(s): Z72.0 - Tobacco use Status: Acute (7) Metabolic acidosis: Code(s): E87.20 - Acidosis, unspecified Status: Acute DS: Summary Hospital Course Reason for hospitalization: 57yo male with alcoholism here for intoxication and now with withdrawal. Please see H&P for details Hospital Course: Patient appears to have episodes of binge drinking.? He was unclear on why he decided to come to the emergency room this time. In the emergency room, patient was mildly tachycardic.?Patient has a history of thrombocytopenia.? Platelet count was low on admission and has dropped to 86K and now stable. [place] related to the toxic effects of alcohol.? Upper quadrant ultrasound shows hepatic steatosis but no cirrhosis.?Alcohol level was 373.? His comprehensive metabolic panel showed glucose of 214, AST 142 and ALT 90.? AST/ ALT improving.? Total bilirubin level climbed to 2.5 but better now.? Right upper quadrant ultrasound showing hepatic steatosis.? [place] elevated LFTs related to alcohol hepatitis. Despite the normal electrolytes, he did have an elevated anion gap.? Urinalysis did show trace ketones. With IV fluids, AG closed. [place] related to ketosis and dehydration. Urine drug screen was negative.? He was started on banana bag.? He was given Zofran.? He was admitted to medical floor. Once he sobered, patient developed withdrawal symptoms.?He was monitored with CIWA protocol. We scheduled Librium and dose increased.?He became more stable. Seizure precautions were instituted. Patient was educated about the benefits of abstaining from alcohol and tobacco use.?He was treated with thiamine and folate.?BP soft earlier today felt related to over sedation. Librium was cut back. He remained stable and BP improved. He was able to be discharged home with his mother on 09/02/22. He already has alcohol rehab set up. He was instructed not to drive. Status at Discharge Cognitive/behavioral status at discharge: stable Time Spent with Patient Time attestation: Total time spent providing and/or coordinating discharge services: 34 minutes Time spent: Greater than 30 minutes Exam Narrative: AF 97.8 102/72 88 20 99% ra Gen - NARD Chest - CTA bilaterally, nml RR CV - RRR. S1-S2 Abd - soft. NT/ND. +BS Ext - no pedal edema. Neuro - AOx4. Speech is clear. Psych - normal mood and affect. Patient is pleasant and cooperative. Skin - warm and dry. DS: Data Data Completed and Pending Labs on day of discharge: Labs from last 24 hours 09/02/22 09/02/22 09/01/22 11:36 05:43 17:50 Sodium 137 Potassium 3.2 L Chloride 100 Carbon Dioxide 21 L Anion Gap 16 BUN 20 Creatinine 0.70 Estim Creat Clear Calc 99 Estimated GFR > 60 Glucose 112 H POC Capillary Glucose 117 H 140 H Calcium 8.9 Discharge Plan Discharge Attending physician on discharge: Hipolito Plascencia Discharging Clinician: Hipolito Plascencia Anticipated Discharge Date/Time: 09/02/22 14:11 Patient Disposition: Home, Self-Care Activity: no driving Diet: regular Discharge Instructions: No driving until seen by your doctor and off the Librium. Take precautions to avoid falls. Rise slowly from a
== END 2022-09-02 14:30 | disposition home or self-care (01) | DRG 775 ==
LOC: ANHED 08-30 05:57 → ANH3MEDSUR 08-30 07:44
PROVIDERS: Admitting Provider Internal Medicine; Emergency Provider Emergency Medicine; PCP Family Medicine Adolescent Medicine; Visit Provider Internal Medicine
DX: F10.221 Alcohol dependence with intoxication delirium (principal); D69.59 Other secondary thrombocytopenia; R56.9 Unspecified convulsions; E86.0 Dehydration; F10.231 Alcohol dependence with withdrawal delirium; K70.10 Alcoholic hepatitis without ascites; F17.210 Nicotine dependence, cigarettes, uncomplicated; F41.9 Anxiety disorder, unspecified; J45.909 Unspecified asthma, uncomplicated; K70.0 Alcoholic fatty liver; R79.89 Other specified abnormal findings of blood chemistry; R00.0 Tachycardia, unspecified; Y90.8 Blood alcohol level of 240 mg/100 ml or more; Z28.21 Immunization not carried out because of patient refusal
CPT/HCPCS: 36415; 76705; 80048; 80053; 80307; 81001; 82948; 83735; 85025; 85027; 85055; 85610; 85730; 93005; 96361; 96374; 96375; 96376; 99285; A9270; G0378; G0379; J2060; J2405; J3411; J3475; J7030

== ENCOUNTER 2023-05-24 09:03 | Outpatient (CLI) | payer OTHER, SELFPAY ==
--- NOTE | ~2023-05-24 | XR_ITS ---
EXAMINATION: XR wrist RT min 3V DATE: 05/24/2023 09:18 INDICATION: Right wrist mass. Arthritis. TECHNIQUE: 4 views of right wrist were obtained. COMPARISON: None. FINDINGS: Bone alignment is normal. No fracture. 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 The re is a 4 mm loose body dorsal to the carpus. IMPRESSION: 1. Mild osteoarthritis of triscaphe joint. 2. Loose body dorsal to the carpus. Reviewed, dictated and finalized at location A.
== END 2023-05-24 09:04 | disposition home or self-care (01) ==
LOC: ANHIMG 09:06
PROVIDERS: PCP Family Medicine Adolescent Medicine; Visit Provider Plastic Surgery
DX: M19.031 Primary osteoarthritis, right wrist (principal); M24.031 Loose body in right wrist
CPT/HCPCS: 73110

== ENCOUNTER 2023-12-23 18:56 | Emergency (ER) | payer OTHER, SELFPAY ==
--- NOTE | ~2023-12-23 | CT_ITS ---
EXAMINATION: CT brain wo con DATE: 12/23/2023 19:43 INDICATION: trauma . TECHNIQUE: Computed tomography (CT) of the head was performed without intravenous contrast. The mA wa s adjusted according to patient size. Iterative reconstruction technique was employed. The dose-lengt h product was 681.00 mGy-cm. COMPARISON: None. FINDINGS: No acute intracranial hemorrhage or extra-axial fluid collection. No hydrocephalus, mass, or herniation. No acute ischemic infarct. Unremarkable dural venous sinus attenuation. No acute osseous abnormality. The aerated spaces are clear. Mild atrophy and chronic white matter change. IMPRESSION: No acute intracranial process. Reviewed, dictated and finalized at location K. SERVICES PROFESSIONAL
--- NOTE | ~2023-12-23 | CT_ITS ---
CTA OF right lower extremity EXAMINATION: CTA LE RT DATE: 12/23/2023 19:54 INDICATION: Pulseless right lower extremity TECHNIQUE: Computed tomography (CT) of the right lower extremity was performed with 150 mL Omnipaque 350 intravenous contrast, in the arterial phase. Automated exposure control and iterative reconstruct ion technique were employed. The dose-length product was 538.09 mGy-cm. COMPARISON: None FINDINGS: Acute near occlusive thrombus in the distal portion of the right common femoral artery just proximal to the femoral bifurcation. Contrast extends minimally into the proximal deep femoral arter y. A cord of contrast extends several centimeters into the proximal superficial femoral artery. There is slow flow, as evidenced by contrast puddling, in the distal superficial femoral artery. No arteri al flow detected below the level of the femoral condyles. Calcified plaque present in the distal superficial femoral artery, at the femoral bifurcation, and in the bilateral common iliac vessels. Incidental note of a moderate stenosis in the origin of the left external iliac artery. No acute osseous finding. IMPRESSION: Acute, near occlusive thrombus in the distal aspect of the right common femoral artery at the femoral bifurcation, with extension of thrombus into the proximal superficial and deep femoral arteries. Slo w flow in the right superficial femoral artery, which ceases at the level the femoral condyles. No ar terial flow seen in the remainder of the right lower extremity. Results reported telephonically to Dr. Agarwal by Dr. Villeda at 7:56 PM on 12/23/2023. Reviewed, dictated and finalized at location K. POSTPARTUM IMPRESSION: Acute, near occlusive thrombus in the distal aspect of the right common femoral artery at the femoral bifurcation, with extension of thrombus into the proxima l superficial and deep femoral arteries. Slow flow in the right superficial fem oral artery, which ceases at the level the femoral condyles. No arterial flow s een in the remainder of the right lower extremity. Results reported telephonically to Dr. Agarwal by Dr. Villeda at 7:56 PM on 12/05.
[2023-12-23 18:58] VITALS: BP 147/85; PULSE 76; RESP 17; TEMP 36.3; O2SAT 100
--- NOTE | 2023-12-23 19:08 | ED.GENADULT ---
HPI - General Adult General Chief complaint: Extremity Injury, Lower Stated complaint: RLE PAIN, NUMB, PULSELESS; SOB, ETOH W/D Time Seen by Provider: 12/23/23 19:01 History of Present Illness HPI narrative: 58-year-old male presenting ED for evaluation of right lower extremity pain. Patient states he was lying in bed when he had onset right leg pain. Patient did call EMS for this. Upon arrival to the emergency department patient has a pale pulseless painful right lower extremity. Patient denies any falls or injuries today. Patient states he did quit drinking alcohol approximately 3 days ago and has had a lot of nausea and vomiting, patient states he has been lying in bed were frequently. Patient denies any hematemesis and denies any melena or hematochezia. Patient did strike his head. Related Data Home Medications Medication Instructions Recorded Confirmed No Home Medications 05/23/23 05/23/23 Allergies Allergy/AdvReac Type Severity Reaction Status Date / Time No Known Allergies Allergy Verified 05/24/23 08:14 Review of Systems Review of Systems: All systems reviewed & are unremarkable except as noted in HPI and below PMFSH Past Medical History Medical History Alcohol abuse Alcohol withdrawal seizure Anxiety Asthma Right wrist pain Tobacco use Surgical History Surgical History (Updated 05/23/23 @ 06:56 by Cristian Tate MD) No pertinent past surgical history Family History Family History (Updated 05/23/23 @ 13:42 by Cristian Tate MD) Father Carcinoma of colon Other Alcoholism Chronic obstructive pulmonary disease Social History Social History Social History: Surrogate decision maker: Brandy Deshpande (mother) or Kerrie Sanchez (girlfriend). Code status: Full code. Smoking packs per day: 1 Smoking cigarettes per day: 20.0 Years smoked: 35 Smoking pack-years: 35.00 Smoking status: Current every day smoker Alcohol intake: current Alcohol use details: Longstanding history of alcohol abuse. Patient typically drinks vodka. Unable to qualify at this time. Substance use: never Substance use type: does not use Lack of Transportation: No Lack of Food: Never True Current Housing: I Have Housing Concerned About Future Housing: No Difficulty Paying Gas/Electric Bills: No Difficulty Paying for Meds: No Currently Unemployed: No Education: Trade/Vocational Certificate Difficulty w/ Childcare or Family Care: No Living arrangements: with family Additional living arrangements comments: The patient lives with his girlfriend in a basement apartment in his mother's home. 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 Spiritual care concerns: No Exam Narrative: APPEARANCE: Uncomfortable appearing HEAD: normocephalic, atraumatic. EYES: PERRLA/EOMI, conjunctivae clear. NOSE: Normal no drainage EARS:TMS clear with good light reflex. THROAT: Pharynx clear, no exudate. NECK: Supple. No adenopathy, no masses. RESPIRATORY: Airway patent, respirations nonlabored. Clear to auscultation bilaterally, no rales, rhonchi, wheezing. CARDIOVASCULAR: Regular rate and rhythm without murmurs rubs or gallops. ABDOMINAL: Soft, nontender, nondistended, normal bowel sounds MUSCULOSKELETAL: Right foot was pale pulseless and not numb above the ankle patient had increased pain of the right lower extremity NEURO: Alert. Cranial nerves II through XII intact. Grossly intact. Decreased sensation over the right foot SKIN: Warm, dry. Normal Color Course Course Emergency Course: 58-year-old male presenting to ED for evaluation pulses her lower extremity. Patient was Hemoccult negative. CT of leg and CT had it were ordered. I discussed the case with [facility] specifically with Dr. Gonzalez from vascular and patient was recommended for transfer. I discussed the case wit
[2023-12-23] MEDS: HYDROmorphone HCL INJ (*CRX) 1 MG/ML SYR IV PUSH (19:13)
[2023-12-23] MEDS: SODIUM CHLORIDE 0.9% IV 1,000 ML 999 ML IV CONT ×3 (19:13→20:27)
[2023-12-23 19:34] LABS: Hematocrit 39.9 % (42.0-52.0); Hemoglobin 13.5 g/dL (14.0-18.0); Mean Corpuscular HGB Conc 33.8 g/dl (32-36); Mean Corpuscular Hemoglobin 30.8 pg (26-34); Mean Corpuscular Volume 91.1 fl (80-100); Mean Platelet Volume 11.6 fl (7.4-10.4); Platelet Count Result 34 k/mm3 (150-375); Red Blood Count 4.38 M/mm3 (4.6-6.20); Red Cell Distribution Width 14.2 % (11.5-14.5); White Blood Count 9.9 K/mm3 (4.5-10.0)
--- NOTE | 2023-12-23 19:35 | PC.NURSE ---
NO pedal or popliteal pulse detected on doppler on RLE. Femoral pulse palpated. MD made aware
[2023-12-23 19:42] LABS: Alanine Aminotransferase 134 U/L (6-50); Albumin Level 4.7 g/dL (3.5-5.1); Alkaline Phosphatase 75 U/L (38-126); Anion Gap 26 mmol/L (8-16); Aspartate Amino Transferase 256 U/L (17-59); Bilirubin,Total 2.2 mg/dL (0.2-1.3); Blood Urea Nitrogen 16 mg/dL (9-20); Calcium 9.2 mg/dL (8.4-10.2); Carbon Dioxide 13 mmol/L (22-30); Chloride 96 mmol/L (98-107); Estimated CRCL calculation 88 ml/min; Estimated Glomerular Filt Rate > 60; Glucose 133 mg/dL (65-110); Potassium 3.6 mmol/L (3.4-5.0); Sodium 135 mmol/L (137-145)
[2023-12-23 19:43] LABS: INR 1.2; Partial Thromboplastin Time 27.6 SECONDS (22.3-36.8); Prothrombin Time 16.1 Seconds (11.1-14.7)
[2023-12-23 19:45] LABS: Estimated CRCL calculation 78 ml/min; Estimated Glomerular Filt Rate > 60
[2023-12-23 19:56] LABS: Lactic Acid Reflex 10.2 mmol/L (0.7-2.0)
[2023-12-23] MEDS: ONDANSETRON INJ 4 MG/2 ML VIAL IV PUSH (19:58)
[2023-12-23] MEDS: LORazepam INJ (*CRX) 2 MG/ML VIAL IV PUSH (19:58)
[2023-12-23 20:01] LABS: Band Neutrophils Percent 10 % (0-6); Lymphocytes Absolute Manual 0.29 K/mm3 (1.1-4.5); Monocytes Absolute Manual 0.29 K/mm3 (0.1-0.90); Monocytes Percent Manual 3 % (3-9); Neutrophils Percent Manual 84 % (46-73); Platelet Estimate Decreased (Adequate); Schistocytes None Seen (NORMAL); Total Cells Counted 100
[2023-12-23 20:02] VITALS: BP 184/90; PULSE 80; RESP 12; O2SAT 100
[2023-12-23 20:15] VITALS: BP 159/98; PULSE 93; RESP 18; O2SAT 100
[2023-12-23] MEDS: HEPARIN SOD/D5W 100 UNITS/ML 25,000 UNITS/250 ML BAG 11 UNITS IV CONT (20:27)
[2023-12-23] MEDS: HEPARIN SODIUM 5,000 UNITS/ML VIAL 5000 UNITS IV PUSH (20:27)
[2023-12-23 20:30] VITALS: BP 161/100; PULSE 92; RESP 16; O2SAT 100
--- NOTE | 2023-12-23 20:39 | PC.NURSE ---
Dedrick Mae given report at [facility] via [phone]
[2023-12-23 20:45] VITALS: BP 156/100; PULSE 92; RESP 15; O2SAT 100
[2023-12-23 21:00] VITALS: BP 148/103; PULSE 93; RESP 13; O2SAT 98
[2023-12-23 22:38] LABS: Reflex Lactic Acid Yes or No Add Lactic
== END 2023-12-23 21:35 | disposition short-term general hospital (02) ==
PROVIDERS: Emergency Provider Emergency Medicine; PCP Family Medicine Adolescent Medicine
DX: I74.3 Embolism and thrombosis of arteries of the lower extremities (principal); F10.139 Alcohol abuse with withdrawal, unspecified; J45.909 Unspecified asthma, uncomplicated; F17.210 Nicotine dependence, cigarettes, uncomplicated
CPT/HCPCS: 36415; 70450; 73706; 80053; 83605; 85025; 85055; 85610; 85730; 96361; 96365; 96375; 99285; J1170; J1644; J2060; J2405; J7030; Q9967

== ENCOUNTER 2025-06-11 02:36 | Observation (INO) | payer OTHER, SELFPAY ==
[2025-06-11] VITALS (51 sets, daily range): BP systolic 98–173; BP diastolic 69–96; PULSE 80–100; RESP 12–18; TEMP 36.6–37; O2SAT 88–98; BMI 19.2
--- NOTE | ~2025-06-11 | CT_ITS ---
Non-contrast Head CT History: Status post fall COMPARISON: 12/23/2023 Technique: Axial non-contrast imaging of the brain was performed. Dose reduction technique was used on this scan by utilizing automated exposure control and iterative reconstruction technique. The dose -length product (DLP) was 681.00 mGy-cm. Findings: There is no evidence of intracranial hemorrhage, mass lesion, or acute infarct. Brain par enchyma appears normal. The ventricles and subarachnoid spaces are normal in size. The calvarium ap pears normal. The visualized paranasal sinuses and mastoid air cells are clear. Impression: No significant abnormality seen. Reviewed, dictated and finalized at location . Impression: No significant abnormality seen.
--- NOTE | ~2025-06-11 | CT_ITS ---
EXAMINATION: CT facial & cervical spine wo DATE: 06/11/2025 06:28 INDICATION: Status post fall. Epistaxis. TECHNIQUE: Computed tomography (CT) of the maxillofacial region and cervical spine was performed with out intravenous contrast. The dose-length product (DLP) was 339.83 mGy-cm. Automated exposure control and iterative reconstruction technique were employed. COMPARISON: None FINDINGS: MAXILLOFACIAL CT: There is mild mucosal thickening of the ethmoid and sphenoid sinuses. The mandible is intact. No maxi llary fracture. Temporomandibular joints are symmetric. Pterygoid plates are normal. Zygomatic arches are symmetric. Paranasal sinuses and mastoids are pneumatized. No evidence for orbital fracture. No nasal septal deviation. Ostiomeatal units are patent. CERVICAL SPINE CT: There is degenerative anterolisthesis at C2-3 secondary to facet hypertrophy. Odontoid process is nor mal. No significant paraspinal soft tissue abnormality. There is delayed lung apices are normal. Righ t-sided aortic arch, partially visualized. IMPRESSION: 1. No acute abnormality of the facial bones or cervical spine. 2: Right-sided aortic arch. 3: Moderate-severe cervical spondylosis. Reviewed, dictated and finalized at location A.
--- NOTE | ~2025-06-11 | XR_ITS ---
XR forearm LT 2V 06/11/2025 06:21 INDICATION: Ecchymosis PROCEDURE: 2 views left forearm COMPARISON: No prior studies for comparison. FINDINGS: Fracture, dislocation or subluxation is not identified. The soft tissues appear within norm al limits. No foreign bodies are identified. IMPRESSION: 1: NO ACUTE BONE OR JOINT ABNORMALITY IDENTIFIED. Reviewed, dictated and finalized at location A.
--- NOTE | 2025-06-11 05:59 | ED.ALCOHOL ---
HPI - Alcohol General Chief Complaint: Alcohol Stated Complaint: LEG PAIN, ETOH INTOXICVATION FROM PD. Time Seen by Provider: 06/11/25 05:29 Source: patient and RN notes reviewed Mode of arrival: EMS Limitations: intoxication (though able to communicate) History of Present Illness HPI narrative: Patient presents via EMS. He was found in his car and was intoxicated with alcohol. Initially patient had complained of leg pain however on my assessment he states that he has some chronic left medial leg pain after having veins removed for bypass/graft surgery. Has some facial abrasion and, upon further investigation, dried epistaxis in R nares. Patient states he fell and received a CT scan at [facility] but states that that was performed a few weeks ago. States he went to [facility] for that because that's where his vascular surgeon is through. He had been noted to be/abrasion to his left elbow. He denies any pain in his extremities on my exam only that he has a headache. Reportedly drank a pt of vodka with Dr. Chavarria. When asked why he thinks he is in the emergency department he states is because he could not deal with the pain in his head. When asked if on anticoagulation, states...I'm on Xanerol. Related Data Home Medications ?Medication ?Instructions ?Recorded ?Confirmed ?Last Taken ?Type aspirin 81 mg tablet,delayed 81 mg PO DAILY 05/14/24 01/22/25 Unknown History release carvedilol 6.25 mg tablet 6.25 mg PO Q12H 01/22/25 01/22/25 Unknown History famotidine 20 mg tablet 20 mg PO BID 01/22/25 01/22/25 Unknown History Allergies Allergy/AdvReac Type Severity Reaction Status Date / Time No Known Allergies Allergy Verified 08/07/24 08:45 [facility] Past Medical History Medical History Current use of group home anticoagulation Right wrist pain Tobacco use Alcohol withdrawal seizure Anxiety Asthma Alcohol abuse Surgical History Surgical History (Updated 06/11/25 @ 08:35 by Nicolle Noonan MD) S/P femoral-popliteal bypass surgery Family History Family History Father Carcinoma of colon Other Alcoholism Chronic obstructive pulmonary disease Social History Social History Social History: Surrogate decision maker: Brandy Deshpande (mother) or Kerrie Sanchez (girlfriend). Code status: Full code. Smoking packs per day: 1 Smoking cigarettes per day: 20.0 Years smoked: 35 Smoking pack-years: 35.00 Smoking status: Current every day smoker Smoking end date: 09/04/24 Alcohol intake: current Alcohol use details: Longstanding history of alcohol abuse. Patient typically drinks vodka. Unable to qualify at this time. Substance use: never Substance use type: does not use Lack of Transportation: No Lack of Food: Never True Current Housing: I Have Housing Concerned About Future Housing: No Difficulty Paying Gas/Electric Bills: No Difficulty Paying for Meds: No Currently Unemployed: No Education: Trade/Vocational Certificate Difficulty w/ Childcare or Family Care: No Living arrangements: with family Additional living arrangements comments: The patient lives with his girlfriend in a basement apartment in his mother's home. 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 Spiritual care concerns: No Exam Narrative: GENERAL: Well-appearing, well-nourished, and in no acute distress. HEAD: Normocephalic, EYES: Non injected, non icteric. PERRL. ENT: Right naris with dried epistaxis. Gross auditory acuity intact. Superficial abrasion bridge of nose. NECK: Supple. No meningismus. CHEST: Speaking in full sentences. No respiratory distress. HEART: Regular rate and rhythm. . ABDOMEN: Soft, nondistended. No rigidity or guarding. Not peritoneal EXTREMITIES: Normal range of motion. Left medial leg well healed scars. Ecchymoses, of variable stages along L forearm. SKIN: Warm, dry, no rash. NEURO: No focal deficits. Alert and oriented to some details; knows he is at [facility]. Answering questions. Following commands. PSYCH: Normal mood and affect. Course Vital Signs Vital signs: Vital Signs Temperature 98.0 F 06/11/25 02:44 Pulse Rate 80 06/11/25 02:44 Respiratory Rate 14 06/11/25 02:44 Blood Pressure 148/74 H 06/11/25 02:44 Pulse Oximetry 90 06/11/25 02:44 Oxygen Delivery Room Air 06/11/25 02:44 Temperature 98.0 F 06/11/25 02:44 Pulse Rate 91 06/11/25 08:08 Respiratory Rate 17 06/11/25 08:08 Blood Pressure 129/89 06/11/25 08:08 Pulse Oximetry 98 06/11/25 08:08 Oxygen Delivery Room Air 06/11/25 02:44 MDM - Alcohol MDM Narrative Medical decision making narrative: 60-year-old male presents after being found intoxicated in his car. In the emergency department he is afebrile vital signs notable for hypertension. Patient had initially complained of leg pain but later states that this is chronic due to previous surgery, no acute issues. He is noted to have a small abrasion on his elbow but also with ecchymosis on his left forearm so will obtain imaging of this. In addition he has an abrasion on his face and dried epistaxis in his right nostril and for this reason will proceed with CT imaging given he states the fall occurred weeks ago but do not believe this to be the case. Per scanned document in EMR, patient was admitted at [facility] from [phone] for alcohol withdrawal. This hospitalizations summary also does confirm that patient is on Xarelto. Normocytic anemia, stable. Received notification of critical ethanol level of 370 mg/dL. He also has acute hypernatremia of 151 (previously 136). This makes 391-410?mOsm/kg Calculated Serum Osm . Urine Cr and Na ordered to determine FENa. UDS positive for benzodiazepines. Will require admission for improvement/management of hyperkalemia to decrease sodium carefully/cautiously. Discussed with Dr Dutta who accepts admission to IMU. EKG ordered. Differential Diagnosis Differential diagnosis: Likely alcohol withdrawal delirium, alcohol intoxication and other (Acute intracranial hemorrhage, forearm fracture, epistaxis, considered fall) Medical Records Attestation: I reviewed the patient's medical records. Medical records narrative: as above Lab Data Attestation: I reviewed the patient's lab results. 06/11/25 06:40 06/11/25 06:40 Labs: Lab Results 06/11/25 06/11/25 Range/Units 06:40 06:41 WBC 6.0 (4.5-10.0) K/mm3 RBC 3.99 L (4.6-6.20) M/mm3 Hgb 13.2 L (14.0-18.0) g/dL Hct 39.9 L (42.0-52.0) % MCV 100.0 (80-100) fl MCH 33.1 (26-34) pg MCHC 33.1 (32-36) g/dl RDW 17.0 H (11.5-14.5) % Plt Count 198 D (150-375) k/mm3 MPV 8.4 (7.4-10.4) fl Immature Gran % (Auto) 0.8 H (0-0.5) % Neut % (Auto) 41.2 L (45.5-73.1) % Lymph % (Auto) 44.1 (18.3-44.2) % [place] % (Auto) 11.3 H (2.6-8.5) % Eos % (Auto) 1.8 (0-4.4) % Baso % (Auto) 0.8 (0.2-1.2) % Lymph # (Auto) 2.66 (0.9-3.2) K/mm3 [place] # (Auto) 0.7 H (0.1-0.6) K/mm3 Eos # (Auto) 0.1 (0-0.3) K/mm3 Baso # (Auto) 0.1 (0.0-0.1) K/mm3 Abs Immat Gran (auto) 0.05 H (0.00-0.031) K/mm3 Absolute Neuts (auto) 2.5 (1.3-6.7) K/mm3 Absolute Nucleated RBC 0.000 (0.0-0.012) K/mm3 Nucleated RBC % 0.0 (0.0-0.2) % PT 16.6 H (11.1-14.7) Seconds INR 1.4 APTT 30.0 (22.3-36.8) Seconds Sodium 151 H (137-145) mmol/L Potassium 3.8 (3.4-5.0) mmol/L Chloride 111 H (98-107) mmol/L Carbon Dioxide 23 (22-30) mmol/L Anion Gap 17 H (4-12) mmol/L BUN 11 D (9-20) mg/dL Creatinine 0.93 (0.7-1.3) mg/dL Estim Creat Clear Calc 72 ml/min Estimated GFR > 60 (59 - ) Glucose 82 (65-110) mg/dL Calcium 8.6 (8.4-10.2) mg/dL Urine Color Dark yellow (Yellow) Urine Appearance Cloudy H (Clear) Urine pH 5.5 (5.0-9.0) Ur Specific [place] 1.024 (1.001-1.035) Urine Protein 3+ H (Negative) mg/dL Urine Glucose (UA) Negative (Negative) mg/dL Urine Ketones Trace H (Negative) mg/dL Ur Blood (Man) 1+ H (Negative) Urine Nitrate Negative (Negative) Urine Bilirubin Negative (Negative) Urine Urobilinogen 1.0 (<2.0) mg/dL Add Ur Microanalysis Reviewed Leukocyte Esterase Rfl Negative (Negative) ERIC/UL Urine RBC 0-2 (0-2) /hpf Urine WBC 0-5 (0-3) /hpf Ur Squamous Epith Cells None seen (Few) /hpf Urine Bacteria None seen /hpf Urine Casts >20 Hyaline Casts Present (None) /lpf Urine Opiates Screen Negative (Negative) Urine Methadone Screen Negative (Negative) Ur Barbiturates Screen Negative (Negative) Ur Phencyclidine Scrn Pending Ur Amphetamine Screen Negative (Negative) U Benzodiazepines Scrn Positive A (Negative) Urine Cocaine Screen Negative (Negative) U Cannabinoids Screen Negative (Negative) Ethyl Alcohol 370 H* (<10) mg/dL Imaging Data Radiologist's impression: ITS Impressions Forearm X-Ray 06/11/25 06:22 IMPRESSION: 1: NO ACUTE BONE OR JOINT ABNORMALITY IDENTIFIED. Head CT 06/11/25 06:29 Impression: No significant abnormality seen. Head/Cervical Spine/Facial Bones CT 06/11/25 06:30 IMPRESSION: 1. No acute abnormality of the facial bones or cervical spine. 2: Right-sided aortic arch. 3: Moderate-severe cervical spondylosis. ECG Data EKG #1: Attestation: I personally reviewed and interpreted this ECG as follows: ECG completion date: 06/11/25 ECG completion time: 08:05 Interpretation: Normal sinus rhythm at a rate of [address] interval 106. QRS 104. QT/QTC 393/434. Good R-wave progression across the precordial leads. No T-wave inversions. Normal axis. Discharge Plan Discharge Clinical Impression: Ecchymosis of forearm, Cervical spondylosis, Headache, Normocytic anemia, Acute hypernatremia, Alcohol intoxication with blood alcohol level greater than 0.3 Patient Disposition: Still a Patient Condition: Stable
--- OUTSIDE RECORDS SUMMARY | 2025-06-11 05:59 | XMS_ITS | Clinical Summary ---
Author Organization [facility] Address [address] [facility] [place] [address] Care Team Providers Care Brick Chimney Builder Name Role Phone Cristian Tate MD Primary Care Provider + Source Comments [facility],non-owned Affiliates and Associated Physician Practices is amultiple site organization consisting of ambulatory clinics and hospital sitesin [place] and [place]. This disclosure is being madepursuant to the Care Everywhere program and may not contain all information available regarding this patient. Last updated 18.[facility] Allergies Active Allergy Reactions Criticality Noted Date Comments Mushroom Extract Complex Vomiting 02/04/2024 Medications * Be aware that medications may not be up to date on this document. Alwaysverify current medications with the patient. naloxone HCl (Narcan) 4 MG/0.1ML nasal spray 4 Active gabapentin (Neurontin) 100 MG capsule Take 1 (one) capsule by mouth 3 times daily 180 capsule 4 Active Additional Information Patient not taking.Reported on 01/26/2025 atorvastatin (Lipitor) 40 MG tabletIndicati ons:Peripheral Arterial Disease Take 1 (one) tablet by mouth once daily Reasons: Disease of the Peripheral Arteries 30 tablet 2 4 Active rivaroxaban (Xarelto) 20 MG tablet Take 1 (one) tablet by mouth daily with food 30 tablet 2 4 Active acetaminophen (Tylenol) 500 MG tablet Take 1 (one) tablet by mouth every 6 hours as needed for Fever or Pain Maximum allowable Acetaminophen amount = 4 Grams (4000 mg) / 24 hours. 4 Active Additional Information Patient not taking.Reported on 01/26/2025 aspirin (Aspirin) 81 MG chew tabletIndicati ons:PAD (peripheral artery disease) CHEW AND SWALLOW 1 TABLET BY MOUTH ONCE DAILY 90 tablet 1 4 Active albuterol (Proventil;Terry tolin) (2.5 MG/3ML) 0.083% nebulizer solution Inhale 2.5 (two and one-half) mg by mouth every 6 hours as needed for Shortness of Breath or Wheezing 15 mL 5 Active chlordiazePOXI DE (Librium) 25 MG capsule Take 1 (one) capsule by mouth 2 times daily 6 capsule 5 Active Additional Information Patient not taking.Reported on 01/26/2025 carvedilol (Coreg) 6.25 MG tablet Take 1 (one) tablet by mouth 2 times daily with morning and evening meal 60 tablet 5 Active Additional Information Patient not taking.Reported on 01/26/2025 folic acid (Folvite) 1 MG tablet Take 1 (one) tablet by mouth once daily 30 tablet 5 Active multiple vitamins with minerals tablet Take 1 (one) tablet by mouth once daily 30 tablet 5 Active famotidine (Pepcid) 20 MG tablet Take 1 (one) tablet by mouth 2 times daily 60 tablet 5 Active Additional Information Patient not taking.Reported on 01/26/2025 thiamine (Vitamin B-1) 100 MG tablet Take 1 (one) tablet by mouth once daily 30 tablet 5 Active varenicline (Chantix) 1 MG tablet Take 1 (one) tablet by mouth 2 times daily 5 Active sulfamethoxazo le-trimethopri m (Bactrim DS; Septra DS) 800-160 MG tablet Take 1 (one) tablet by mouth every 12 hours 5 Active Active Problems Problem Noted Date Diagnosed Date S/P femoral-popliteal bypass surgery 07/19/2024 Occlusion of femoral artery 07/19/2024 History of influenza 07/19/2024 Lactic acidosis 07/18/2024 Right leg pain 07/18/2024 Peripheral artery disease 07/18/2024 Acute lower limb ischemia 07/18/2024 Influenza A with respiratory manifestations 12/06 History of alcohol withdrawal syndrome History of seizure due to alcohol withdrawal Alcoholic hepatitis 12/25/2023 Critical limb ischemia of right lower extremity 12/25/2023 Elevated liver enzymes 12/25/2023 Alcohol dependence, binge pattern 12/25/2023 Hyperkalemia 12/24/2023 Hypomagnesemia 12/24/2023 Popliteal artery occlusion, 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 (F LUZONE; FLULAVAL; FLUARIX; AFLURIA QUADRIVALENT; 6MO+), 0.5 ML (IIV4) 12/28/2023(Deferred: Patient Refused - pt does not want it. states he gets the flu every time he has it. pt educated to importance, however pt also tested positive for flu yesterday and doesnt want to overdo it) Social History Tobacco Use Types Packs/Day Years Used Date Smoking Tobacco: Former Cigarettes 0.3 20.7 2 004 - 08/04/2024 Smokeless Tobacco: Never Alcohol Use Standard Drinks/Week Comments Yes 16 (1 standard drink = 0.6 oz pure alcohol) Pt denied current etoh use 04/2024 AUDIT-C Answer Date Recorded Q1: How often do you have a drink containing alc ohol? 2-3 times a week 07/19/2024 Q2: How many drinks containi ng alcohol do you have on a typical day when you are drinking? 10 or more 07/19/2024 Q3: How often do you have si x or more drinks on one occasion? Weekly 07/19/2024 Overall Financial Resource Strain (CARDIA) Answe r Date Recorded How hard is it for you to pa y for the very basics like food, housing, medical care, and heating? Somewhat hard 07/19/2024 [facility] Occupat ional Health - Occupational Stress Questionnaire Answer Date Recorded Do you feel stress - tense, restless, nervous, or anxious, or unable to sleep at night because your mind is troubled all the time - these days? Rather much 07/19/2024 Hunger Vital Sign Answer Date Recorded Within the past 12 months, y ou worried that your food would run out before you got the money to buy more. Never true 12/11/19 25 Within the past 12 months, t he food you bought just didn't last and you didn't have money to get more. Never true 12/11/2024 PRAPARE - Transportation Answer Date Re corded In the past 12 months, has l ack of transportation kept you from medical appointments or from getting medications? No 07/05 In the past 12 months, has l ack of transportation kept you from meetings, work, or from getting things needed for daily living? No 07/19/2024 Housing Stability Vital Sign Answer Dayo e Recorded In the last 12 months, was t here a time when you were not able to pay the mortgage or rent on time? No 07/19/2024 In the last 12 months, how many places have you lived? 1 07/19/2024 In the last 12 months, was t here a time when you did not have a steady place to sleep or slept in a care home (including now)? No 07/19/2024 Sex and Gender Information Value Date Recorded Sex Assigned at Not on file Legal Sex Male 7:55 PM [employer]ONT DES[employer] SUPERVIS[employer] Gender Identity Not on file Sexual Orientation Not on file Last Filed Vital Signs Vital Sign Reading Time Taken Comments Blood Pressure 112/74 01/26/2025 1:09 PM CDT Pulse 71 01/26/2025 1:09 PM CDT Temperature 36.4 C (97.5 F) 12/13/2024 7:31 AM FRONT DESK SUPERVISOR Respiratory Rate 20 12/13/2024 7:31 AM FRONT DESK SUPERVISOR Oxygen Saturation 98% 01/26/2025 1:09 PM CDT Inhaled Oxygen Concentration 21% 12/27/2023 1 :31 PM FRONT DESK SUPERVISOR Weight 67.1 kg (148 lb) 01/26/2025 1:09 PM CDT Height 185.4 cm (6' 1) 01/26/2025 1:09 PM CDT Body Mass Index 19.53 01/26/2025 1:09 PM CDT Plan of Treatment Upcoming Encounters Date Type Department Care Team (Late st Contact Info) Description 07/20/2025 1:00 PM CDT Appointment [facility] [place] [address] Tahd Gonzalez MD [address] [place] [address] [address] [place] [address] 07/20/2025 2:00 PM CDT Appointment [facility] [address] [phone] Thad Gonzalez MD [address] [place] [address] [address] [place] [address] 07/20/2025 3:45 PM CDT Office Visit [facility] - Vascular Surgery [address] [place] [address], [place] [address] Thad Gonzalez MD [address] [place] [address] [address] [place] [address] Health Maintenance Due Date Last Done Comments COLOGUARD (AGES 45-75) - COL ON CA SCREENING 1967 COLON MONITORING 1967 COLONOSCOPY - COLON CA SCREENING 1967 CT COLONOGRAPHY - COLON CA SCREENING 1967 Colorectal Cancer Screening 1967 FIT - COLON CA SCREENING 1967 FLEX SIG - COLON CA SCREENING 1967 HIV SCREENING 1982 HEPATITIS C SCREENING 05/31/1985 DTAP/TDAP/TD VACCINES (1 - Tdap) 1986 HEPATITIS B VACCINE (1 of 3 - 19+ 3-dose series) 1986 PNEUMOCOCCAL VACCINE 50+ (1 of 2 - PCV) 1986 ZOSTER VACCINE (1 of 2) 2017 COVID-19 VACCINE (2023-2 5 season) 2024 01/02/2024, 05/21/2021, 04/25/2021 DEPRESSION SCREENING 11/04/2024 INFLUENZA VACCINE (#1) 2025 08/16/2015 HIB VACCINE Aged Out No longer eligi ble based on patient's age to complete this topic HPV VACCINE Aged Out No longer eligi ble based on patient's age to complete this topic MENINGOCOCCAL (Group B) VACCINE SHARED DECISION-MAKING Aged Out No longer eligible based on patient's age to complete this topic MENINGOCOCCAL GROUPS A/C/Y/W VACCINE Aged Out No longer eligible b ased on patient's age to complete this topic [place] [address] [place] [address] [facility] Advance Directives * Full Code (Latest Code Status on File) Date Activated Date Inactivated Comments 12/10/2024 10:31 PM 12/13/2024 2:04 PM * Full Code Date Activated Date Inactivated Comments 07/19/2024 1:13 AM 07/21/2024 4:43 PM * Full Code Date Activated Date Inactivated Comments 05/18/2024 3:49 PM 05/21/2024 2:52 PM * Full Code Date Activated Date Inactivated Comments 12/24/2023 9:07 AM 12/28/2023 3:05 PM * Full Code Date Activated Date Inactivated Comments 12/24/2023 5:47 AM 12/24/2023 9:07 AM Care Teams Brick Chimney Builder Relationship Specialty Start Date End Date Cristian Tate MD [address] [place] [address] [address] [place] [address] PCP - General Family Medicine 12/25/23
[2025-06-11 06:47] LABS: Hematocrit 39.9 % (42.0-52.0); Hemoglobin 13.2 g/dL (14.0-18.0); Immature Granulocyte Percent A 0.8 % (0-0.5); Lymphocytes Absolute Auto 2.66 K/mm3 (0.9-3.2); Mean Corpuscular HGB Conc 33.1 g/dl (32-36); Mean Corpuscular Hemoglobin 33.1 pg (26-34); Mean Corpuscular Volume 100.0 fl (80-100); Nucleated Red Blood Cells Absolute Auto 0.000 K/mm3 (0.0-0.012); Nucleated Red Blood Cells Perc 0.0 % (0.0-0.2); Platelet Count Result 198 k/mm3 (150-375); Red Blood Count 3.99 M/mm3 (4.6-6.20); White Blood Count 6.0 K/mm3 (4.5-10.0)
[2025-06-11 06:59] LABS: Add Urine Microscopic? YES; Appearance Urine Cloudy (Clear); Glucose Urine UA Negative (Negative); Leukocyte Esterase Ur Negative LEU/UL (Negative); Need Manual Microscopic Reviewed; Nitrate Urine Negative (Negative); Non Pathogenic Casts >20; Specific Grav Ur 1.024 (1.001-1.035)
[2025-06-11 07:00] LABS: INR 1.4; Prothrombin Time 16.6 Seconds (11.1-14.7)
[2025-06-11 07:01] LABS: Partial Thromboplastin Time 30.0 Seconds (22.3-36.8)
[2025-06-11 07:07] LABS: Anion Gap 17 mmol/L (4-12); Blood Urea Nitrogen 11 mg/dL (9-20); Calcium 8.6 mg/dL (8.4-10.2); Carbon Dioxide 23 mmol/L (22-30); Chloride 111 mmol/L (98-107); Estimated CRCL calculation 72 ml/min; Estimated Glomerular Filt Rate > 60; Glucose 82 mg/dL (65-110); Potassium 3.8 mmol/L (3.4-5.0); Sodium 151 mmol/L (137-145)
[2025-06-11 07:39] LABS: Cannabinoid Screen Urine Negative (Negative)
--- NOTE | 2025-06-11 07:40 | ECG_ITS ---
Test Date: 2025-06-11 08:05:48 Measurements Intervals [place] Rate: 84 P: 73 [place]: 106 QRS: 83 QRSD: 104 T: 73 QT: 393 QTc: 467 Interpretive Statements SINUS RHYTHM WITH SHORT [place] INTERVAL DELAYED PRECORDIAL R/S TRANSITION BASELINE WANDER- V1-V3 BORDERLINE ECG No previous ECG available for comparison Electronically Signed On 06-11-2025 08:16:48 CDT by Luis Meza D.O.
--- NOTE | 2025-06-11 11:10 | ADMGEN ---
This patient, Neli Deshpande, was admitted to IMU Room 203-01. Patient/family oriented to hospital policies and general routines including ID bracelet, bed and alarms, visiting hours, pain management, procedures, bathroom and other care routines, personal items, smoking policy, room service/diet, and visiting hours. pt has reading glasses but left them at home Information on how to activate the Rapid Response Team has been discussed. Patient/Family are encouraged to report perceived risks to care and to ask questions if they do not understand what they are told or what they should do.
[2025-06-11] MEDS: THIAMINE HCL 200 MG/2 ML VIAL 100 MG IV PUSH (12:16)
[2025-06-11] MEDS: ATORVASTATIN 40 MG TABLET PO (12:17)
[2025-06-11] MEDS: ASPIRIN 81 MG ENTERIC TABLET PO (12:17)
[2025-06-11] MEDS: DEXTROSE 5% 1,000 ML 1,000 ML 100 ML IV CONT (12:17)
[2025-06-11] MEDS: THERAPEUTIC MULTIVITAMINS/MINERALS TAB (*BKC) 1 TABLET PO (12:17)
[2025-06-11] MEDS: LORazepam INJ (*CRX) 2 MG/ML VIAL IV PUSH ×2 (12:18→20:31)
[2025-06-11 12:22] LABS: Alanine Aminotransferase 35 U/L (6-50); Albumin Level 4.8 g/dL (3.5-5.1); Alkaline Phosphatase 75 U/L (38-126); Anion Gap 13 mmol/L (4-12); Aspartate Amino Transferase 62 U/L (17-59); Bilirubin,Total 0.7 mg/dL (0.2-1.3); Blood Urea Nitrogen 12 mg/dL (9-20); Calcium 8.4 mg/dL (8.4-10.2); Carbon Dioxide 24 mmol/L (22-30); Chloride 105 mmol/L (98-107); Estimated CRCL calculation 84 ml/min; Estimated Glomerular Filt Rate > 60; Glucose 74 mg/dL (65-110); Potassium 4.1 mmol/L (3.4-5.0); Sodium 142 mmol/L (137-145); Total Protein 8.5 g/dL (6.3-8.2)
--- NOTE | 2025-06-11 12:28 | P.HP_ITS ---
H&P: HPI History of Present Illness Date/Time: 06/11/25 12:28 Chief Complaint: Altered mental status Narrative: 60-year-old male with past medical history alcohol use disorder, tobacco use disorder, PAD status post femoral popliteal bypass surgery right lower extremity with resultant left foot paresthesia and right lower extremity paresthesia distal to the knee currently on Xarelto, history of alcoholic hepatitis and alcohol withdrawal. Patient presents to [facility] ER on 06/11/2025 via EMS as he was found in his car intoxicated with alcohol. When speaking to the patient he says he does not know if the problem is as he was sitting in his car drinking Dr. Chavarria. He cannot elaborate further. Of note, in the ER he told the ER physician he drinks vodka with Dr. Chavarria. In the ER he was noted to have dried epistaxis in the right nare and some facial abrasions. Patient states he fell and received a CT scan at [facility] a few weeks prior. His vascular surgeon is at [facility]. CT did not demonstrate any acute fractures. He denies chest pain, fever, fainting, shortness of breath, nausea vomiting or diarrhea, abdominal pain. Review of Systems Review of Systems: All systems reviewed & are unremarkable except as noted in HPI and below (Subjective/HPI) PMFSH Past Medical History Medical History Current use of snf anticoagulation Right wrist pain Tobacco use Alcohol withdrawal seizure Anxiety Asthma Alcohol abuse Surgical History Surgical History S/P femoral-popliteal bypass surgery Family History Family History Father Carcinoma of colon Other Alcoholism Chronic obstructive pulmonary disease Social History Social History Social History: Surrogate decision maker: Brandy Deshpande (mother) or Kerrie Sanchez (girlfriend). Code status: Full code. Smoking packs per day: 1 Smoking cigarettes per day: 20.0 Years smoked: 35 Smoking pack-years: 35.00 Smoking status: Light tobacco smoker Tobacco type: cigarettes Second hand tobacco smoke exposure: Yes Smoking end date: 09/04/24 Alcohol intake: current Drinks per week: 20 Alcohol use details: Longstanding history of alcohol abuse. Patient typically drinks vodka. Unable to qualify at this time. Substance use: never Substance use type: does not use Lack of Transportation: No Lack of Food: Never True Current Housing: I Have Housing Concerned About Future Housing: No Difficulty Paying Gas/Electric Bills: No Difficulty Paying for Meds: Decline to Answer Currently Unemployed: Decline to Answer Education: High School Diploma/GED Difficulty w/ Childcare or Family Care: No Living arrangements: with family Additional living arrangements comments: The patient lives with his girlfriend in a basement apartment in his mother's home. 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 Spiritual care concerns: No Meds Home Medications and Allergies Home Medications ?Medication ?Instructions ?Recorded ?Confirmed ?Type aspirin 81 mg tablet,delayed 81 mg PO DAILY 05/14/24 06/11/25 History release atorvastatin 40 mg tablet 40 mg PO DAILY #90 tabs 08/07/24 06/11/25 Rx rivaroxaban 20 mg tablet (Xarelto) 20 mg PO DAILY #90 tabs 08/07/24 06/11/25 Rx varenicline tartrate 1 mg tablet 1 mg PO BID #56 tabs 08/07/24 06/11/25 Rx albuterol sulfate 90 mcg/actuation 2 inh inhalation Q4H PRN shortness 12/16/24 06/11/25 Rx aerosol inhaler (Ventolin HFA) of breath or wheezing #8.5 grams carvedilol 6.25 mg tablet 6.25 mg PO Q12H 01/22/25 06/11/25 History famotidine 20 mg tablet 20 mg PO BID 01/22/25 06/11/25 History Allergies Allergy/AdvReac Type Severity Reaction Status Date / Time No Known Allergies Allergy Verified 08/07/24 08:45 Vital Signs Vital Signs - 24 hr 06/11/25 02:44 06/11/25 02:46 06/11/25 02:47 Temperature 98.0 F Pulse Rate 80 Respiratory Rate 14 Blood Pressure 148/74 H 127/88 Pulse Oximetry 90 89 L 90 Oxygen Delivery Room Air 06/11/25 03:00 06/11/25 03:01 06/11/25 03:15 Temperature Pulse Rate Respiratory Rate Blood Pressure 133/89 Pulse Oximetry 93 88 L 95 Oxygen Delivery 06/11/25 03:16 06/11/25 03:31 06/11/25 03:46 Temperature Pulse Rate Respiratory Rate Blood Pressure 124/89 98/70 L 100/70 Pulse Oximetry 97 Oxygen Delivery 06/11/25 04:01 06/11/25 04:16 06/11/25 04:31 Temperature Pulse Rate Respiratory Rate Blood Pressure 103/73 112/76 107/69 Pulse Oximetry Oxygen Delivery 06/11/25 04:43 06/11/25 04:45 06/11/25 04:46 Temperature Pulse Rate Respiratory Rate Blood Pressure 118/76 Pulse Oximetry 93 91 92 Oxygen Delivery 06/11/25 05:00 06/11/25 05:01 06/11/25 05:15 Temperature Pulse Rate Respiratory Rate Blood Pressure 118/83 Pulse Oximetry 90 92 94 Oxygen Delivery 06/11/25 05:16 06/11/25 05:30 06/11/25 05:31 Temperature Pulse Rate Respiratory Rate Blood Pressure 125/84 116/79 Pulse Oximetry 94 92 92 Oxygen Delivery 06/11/25 05:45 06/11/25 05:46 06/11/25 06:00 Temperature Pulse Rate Respiratory Rate Blood Pressure 117/78 Pulse Oximetry 93 93 92 Oxygen Delivery 06/11/25 06:01 06/11/25 06:35 06/11/25 06:45 Temperature Pulse Rate Respiratory Rate Blood Pressure 120/80 Pulse Oximetry 96 92 94 Oxygen Delivery 06/11/25 07:00 06/11/25 07:02 06/11/25 07:15 Temperature Pulse Rate Respiratory Rate Blood Pressure 115/81 Pulse Oximetry 90 91 92 Oxygen Delivery 06/11/25 07:30 06/11/25 07:45 06/11/25 08:00 Temperature Pulse Rate Respiratory Rate Blood Pressure Pulse Oximetry 93 92 93 Oxygen Delivery 06/11/25 08:01 06/11/25 08:08 06/11/25 08:15 Temperature Pulse Rate 91 Respiratory Rate 17 Blood Pressure 129/89 129/89 Pulse Oximetry 94 98 97 Oxygen Delivery 06/11/25 08:30 06/11/25 08:45 06/11/25 09:00 Temperature Pulse Rate Respiratory Rate Blood Pressure Pulse Oximetry 95 93 93 Oxygen Delivery 06/11/25 09:01 06/11/25 09:15 06/11/25 09:30 Temperature Pulse Rate Respiratory Rate Blood Pressure 119/86 Pulse Oximetry 94 94 95 Oxygen Delivery 06/11/25 09:31 06/11/25 09:45 Temperature Pulse Rate 93 Respiratory Rate 18 Blood Pressure 115/96 H Pulse Oximetry 95 96 Oxygen Delivery Exam Const: General: comfortable and no acute distress Other: A&O x3 HENMT: Mouth: Yes moist mucous membranes Eyes: Pupils: Equal, round and reactive pupils present Neck: Neck: supple Resp: Effort & Inspection: normal respiratory effort Auscultation: clear to auscultation bilaterally Cardio: Rate: regular rate Rhythm: regular rhythm GI: Inspection: non-distended GI Palp: Yes Soft to palpation Neuro: Motor exam (neuro): 5/5 motor strength present throughout Extrem: General: no edema H&P: Results Labs Labs: Short CBC 06/11/25 Range/Units 06:40 WBC 6.0 (4.5-10.0) K/mm3 Hgb 13.2 L (14.0-18.0) g/dL Hct 39.9 L (42.0-52.0) % Plt Count 198 D (150-375) k/mm3 BMP 06/11/25 06/11/25 06:40 11:52 Sodium 151 H 142 Potassium 3.8 4.1 Chloride 111 H 105 Carbon Dioxide 23 24 BUN 11 D 12 Creatinine 0.93 0.78 Glucose 82 74 Calcium 8.6 8.4 Liver Function 06/11/25 Range/Units 11:52 Total Bilirubin 0.7 (0.2-1.3) mg/dL AST 62 H (17-59) U/L ALT 35 (6-50) U/L Alkaline Phosphatase 75 (38-126) U/L Albumin 4.8 (3.5-5.1) g/dL Urine 06/11/25 Range/Units 06:41 Urine Color Dark yellow (Yellow) Urine Appearance Cloudy H (Clear) Urine pH 5.5 (5.0-9.0) Ur Specific Phelps 1.024 (1.001-1.035) Urine Protein 3+ H (Negative) mg/dL Urine Glucose (UA) Negative (Negative) mg/dL Assessment and Plan Assessment and plan (1) PAD (peripheral artery disease): Code(s): I73.9 - Peripheral vascular disease, unspecified Status: Acute (2) Acute hypernatremia: Code(s): E87.0 - Hyperosmolality and hypernatremia Status: Acute (3) Alcohol intoxication with blood alcohol level greater than 0.3: Code(s): F10.129 - Alcohol abuse with intoxication, unspecified Status: Acute (4) Alcohol abuse: Code(s): F10.10 - Alcohol abuse, uncomplicated Status: Acute Plan 60-year-old male with past medical history alcohol use disorder, tobacco use disorder, PAD status post femoral popliteal bypass surgery right lower extremity with resultant left foot paresthesia and right lower extremity paresthesia distal to the knee currently on Xarelto, history of alcoholic hepatitis and alcohol withdrawal. Patient presents to [facility] ER on 06/11/2025 via EMS as he was found in his car intoxicated with alcohol. When speaking to the patient he says he does not know if the problem is as he was sitting in his car drinking Dr. Chavarria. He cannot elaborate further. Of note, in the ER he told the ER physician he drinks vodka with Dr. Chavarria. In the ER he was noted to have dried epistaxis in the right [place] and some facial abrasions. Patient states he fell and received a CT scan at [facility] a few weeks prior. His vascular surgeon is at [facility]. He denies chest pain, fever, fainting, shortness of breath, nausea vomiting or diarrhea, abdominal pain. ----- Altered mental status Alcohol use disorder -patient found in his car. By the time he arrived he was A&O x3. Likely due to alcohol intoxication. ETOH level on admission 370 -CIWA protocol. Thiamine, folic acid, multivitamin, PT OT, fall precautions, ambulate with assistance. Start D5 normal saline -consult care coordination for abuse. Patient reports he lives at home alone. -benzodiazepines positive on urine drug screen, patient denies use. Tobacco use disorder -active abuse. Nicotine patch offered. Hold [employer] Chantix Acute hypernatremia -presents with sodium 151. Without any intervention repeat sodium is 142. Acute hyponatremia which is likely due to volume deficit. -on admission start D5 normal saline at 100 cc/hour for alcohol intoxication recheck CMP at 4:00 p.m. Lactic acidosis Anion gap metabolic acidosis -likely due to alcohol, starvation, hypovolemia. He is hemodynamically stable. -lactic acid 2.4 on admission. Start fluids, recheck at 4:00 p.m.. Patient wishes to be full code. Restart [employer] aspirin and rivaroxaban. Restart [employer] famotidine. PT OT evaluations, ambulate with assistance, fall precautions. Patient lives at home alone. Care coordination consult for abuse. Hospitalist [facility] Advance Care Plan I have confirmed that the patient's Advanced Care Plan is present, code status is documented, or surrogate decision maker is listed in patient medical record.: Yes Medication Reconciliation I have utilized all available resources to obtain, update and review the pa tients current medications (includes all prescriptions, OTC, herbals, cannabis, and nutritional supplements).: Yes
[2025-06-11] MEDS: FOLIC ACID 1 MG/0.2 ML INJ IV PUSH (12:34)
[2025-06-11] MEDS: DEXTROSE 5%/0.9% SOD CHL 1,000 ML 100 ML IV CONT ×2 (13:28→23:34)
[2025-06-11] MEDS: ONDANSETRON INJ 4 MG/2 ML VIAL IV PUSH ×2 (17:18→20:31)
[2025-06-11] MEDS: RIVAROXABAN 20 MG TABLET PO (17:18)
[2025-06-11] MEDS: FAMOTIDINE 20 MG TABLET PO (17:18)
[2025-06-11 17:26] LABS: Alanine Aminotransferase 33 U/L (6-50); Albumin Level 4.5 g/dL (3.5-5.1); Alkaline Phosphatase 60 U/L (38-126); Anion Gap 13 mmol/L (4-12); Aspartate Amino Transferase 55 U/L (17-59); Bilirubin,Total 0.6 mg/dL (0.2-1.3); Blood Urea Nitrogen 11 mg/dL (9-20); Calcium 8.5 mg/dL (8.4-10.2); Carbon Dioxide 21 mmol/L (22-30); Chloride 105 mmol/L (98-107); Estimated CRCL calculation 99 ml/min; Estimated Glomerular Filt Rate > 60; Glucose 106 mg/dL (65-110); Potassium 3.6 mmol/L (3.4-5.0); Sodium 139 mmol/L (137-145); Total Protein 7.8 g/dL (6.3-8.2)
[2025-06-12] VITALS (11 sets, daily range): BP systolic 150–166; BP diastolic 80–95; PULSE 19–96; RESP 16–20; TEMP 36.8–37; O2SAT 96–100
[2025-06-12 04:14] LABS: Hematocrit 32.9 % (42.0-52.0); Hemoglobin 11.4 g/dL (14.0-18.0); Immature Granulocyte Percent A 0.4 % (0-0.5); Lymphocytes Absolute Auto 1.02 K/mm3 (0.9-3.2); Mean Corpuscular HGB Conc 34.7 g/dl (32-36); Mean Corpuscular Hemoglobin 33.0 pg (26-34); Mean Corpuscular Volume 95.4 fl (80-100); Nucleated Red Blood Cells Absolute Auto 0.000 K/mm3 (0.0-0.012); Nucleated Red Blood Cells Perc 0.0 % (0.0-0.2); Platelet Count Result 172 k/mm3 (150-375); Red Blood Count 3.45 M/mm3 (4.6-6.20); White Blood Count 5.1 K/mm3 (4.5-10.0)
[2025-06-12] MEDS: LORazepam INJ (*CRX) 2 MG/ML VIAL IV PUSH (04:35)
[2025-06-12 05:04] LABS: Alanine Aminotransferase 27 U/L (6-50); Albumin Level 4.0 g/dL (3.5-5.1); Alkaline Phosphatase 58 U/L (38-126); Anion Gap 7 mmol/L (4-12); Aspartate Amino Transferase 46 U/L (17-59); Bilirubin,Total 1.1 mg/dL (0.2-1.3); Blood Urea Nitrogen 13 mg/dL (9-20); Calcium 8.5 mg/dL (8.4-10.2); Carbon Dioxide 25 mmol/L (22-30); Chloride 103 mmol/L (98-107); Estimated CRCL calculation 102 ml/min; Estimated Glomerular Filt Rate > 60; Glucose 104 mg/dL (65-110); Magnesium 1.4 mg/dL (1.6-2.3); Potassium 3.8 mmol/L (3.4-5.0); Sodium 135 mmol/L (137-145); Total Protein 7.0 g/dL (6.3-8.2)
[2025-06-12] MEDS: DEXTROSE 5%/0.9% SOD CHL 1,000 ML 100 ML IV CONT ×2 (09:15→20:38)
[2025-06-12] MEDS: THIAMINE HCL 200 MG/2 ML VIAL 100 MG IV PUSH (09:16)
[2025-06-12] MEDS: FAMOTIDINE 20 MG TABLET PO ×2 (09:16→16:45)
[2025-06-12] MEDS: ATORVASTATIN 40 MG TABLET PO (09:16)
[2025-06-12] MEDS: FOLIC ACID 1 MG/0.2 ML INJ IV PUSH (09:16)
[2025-06-12] MEDS: ASPIRIN 81 MG ENTERIC TABLET PO (09:16)
[2025-06-12] MEDS: THERAPEUTIC MULTIVITAMINS/MINERALS TAB (*BKC) 1 TABLET PO (09:16)
--- NOTE | 2025-06-12 10:01 | P.PNIM_ITS ---
Progress Note: A&P Assessment and Plan (1) Alcohol abuse: Code(s): F10.10 - Alcohol abuse, uncomplicated Status: Acute (2) Alcohol intoxication with blood alcohol level greater than 0.3: Code(s): F10.129 - Alcohol abuse with intoxication, unspecified Status: Acute (3) PAD (peripheral artery disease): Code(s): I73.9 - Peripheral vascular disease, unspecified Status: Acute (4) Acute hypernatremia: Code(s): E87.0 - Hyperosmolality and hypernatremia Status: Acute Plan 60-year-old male with past medical history alcohol use disorder, tobacco use disorder, PAD status post femoral popliteal bypass surgery right lower extremity with resultant left foot paresthesia and right lower extremity paresthesia distal to the knee currently on Xarelto, history of alcoholic hepatitis and alcohol withdrawal. Patient presents to [facility] ER on 06/11/2025 via EMS as he was found in his car intoxicated with alcohol. When speaking to the patient he says he does not know if the problem is as he was sitting in his car drinking Dr. Chavarria. He cannot elaborate further. Of note, in the ER he told the ER physician he drinks vodka with Dr. Chavarria. In the ER he was noted to have dried epistaxis in the right nare and some facial abrasions. Patient states he fell and received a CT scan at [facility] a few weeks prior. His vascular surgeon is at [facility]. He denied chest pain, fever, fainting, shortness of breath, nausea vomiting or diarrhea, abdominal pain. ----- Altered mental status Alcohol use disorder -patient found in his car. By the time he arrived he was A&O x3. Likely due to alcohol intoxication. ETOH level on admission 370 -CIWA protocol. Thiamine, folic acid, multivitamin, PT OT, fall precautions, ambulate with assistance. -consult care coordination for abuse. Patient reports he lives at home alone. -benzodiazepines positive on urine drug screen, patient denies use. -06/12/2025: CIWA score. Also, his jaw clamped he bit his tongue overnight. No other episodes. Continue CIWA protocol. Continue D5 normal saline Tobacco use disorder -active abuse. Nicotine patch offered. Hold [employer] Chantix Acute hypernatremia -presents with sodium 151. Without any intervention repeat sodium is 142. Acute hyponatremia which is likely due to volume deficit. -D5 normal saline started on admission, patient not eating yet. Continue. Hypomagnesemia -magnesium 1.4 in 06/12/2025. Replace with 2 g rider. Lactic acidosis Anion gap metabolic acidosis -likely due to alcohol, starvation, hypovolemia. He is hemodynamically stable. -lactic acid 2.4 on admission, resolved. Anion gap 17 on admission, resolved. Patient wishes to be full code. Continue [employer] aspirin, rivaroxaban, famotidine. PT OT evaluations, ambulate with assistance, fall precautions. Patient lives at home alone. Care coordination consult for abuse. Transfer to medical floor. Patient amenable to stay for further treatment. Subjective Date/time seen: 06/12/25 10:01 Interval history: CIWA score 6. Patient reports overnight his jaw plant and he bit down on his tongue, he was able to release it. No seizure activity otherwise. He has nausea and did not eat breakfast. Review of Systems Review of Systems: All systems reviewed & are unremarkable except as noted in HPI and below (Subjective) Exam Const: General: comfortable and no acute distress Other: A&O x3 HENMT: Mouth: Yes moist mucous membranes Other: Poor dentition Eyes: Pupils: Equal, round and reactive pupils present Neck: Neck: supple Resp: Effort & Inspection: normal respiratory effort Auscultation: clear to auscultation bilaterally Cardio: Rate: regular rate Rhythm: regular rhythm GI: Inspection: non-distended GI Palp: Yes Soft to palpation Neuro: Motor exam (neuro): 5/5 motor strength present throughout Extrem: General: no edema Objective Data Vital Signs Vital Signs: Vital Signs - 24 hr 06/11/25 12:00 06/11/25 12:00 06/11/25 12:00 Temperature 97.9 F Pulse Rate 82 88 Respiratory Rate 12 Blood Pressure 150/82 H Pulse Oximetry 97 Oxygen Delivery Room Air 06/11/25 14:00 06/11/25 16:00 06/11/25 16:00 Temperature 98.6 F Pulse Rate 100 99 Respiratory Rate 16 Blood Pressure 136/88 Pulse Oximetry 96 Oxygen Delivery Room Air 06/11/25 16:00 06/11/25 18:00 06/11/25 20:00 Temperature Pulse Rate 92 86 94 Respiratory Rate Blood Pressure Pulse Oximetry Oxygen Delivery 06/11/25 20:12 06/11/25 22:00 06/12/25 00:00 Temperature 98.4 F Pulse Rate 92 95 88 Respiratory Rate 18 Blood Pressure 173/89 H Pulse Oximetry 94 Oxygen Delivery 06/12/25 00:08 06/12/25 02:00 06/12/25 04:00 Temperature 98.2 F Pulse Rate 96 91 85 Respiratory Rate Blood Pressure 150/95 H Pulse Oximetry 99 Oxygen Delivery 06/12/25 04:22 06/12/25 06:00 06/12/25 08:00 Temperature 98.3 F 98.6 F Pulse Rate 19 L 82 91 Respiratory Rate 20 16 Blood Pressure 151/88 H 150/80 H Pulse Oximetry 96 97 Oxygen Delivery 06/12/25 08:00 06/12/25 08:00 Temperature Pulse Rate 83 Respiratory Rate Blood Pressure Pulse Oximetry 97 Oxygen Delivery Room Air Intake/Output Intake/Output: Intake & Output 06/09/25 06/10/25 06/11/25 06/12/25 23:59 23:59 23:59 23:59 Intake Total 1618 1304.3 Output Total 350 350 Balance 1268 954.3 Meds/Results Medications: Active Medications Generic Name Dose Route Start Last Admin Trade Name Freq PRN Reason Stop Dose Admin Acetaminophen 650 mg 06/11/25 07:41 Acetaminophen 325 Mg Tablet PO Q4H PRN Mild Pain (1-3) or Fever Albuterol 2 puff 06/11/25 11:41 Albuterol Sulfate (*Sp) Aerosol 1 Puff INHALATION Q4H PRN shortness of breath or wheezing Aspirin 81 mg 06/11/25 12:00 06/12/25 09:16 Aspirin 81 Mg Enteric Tablet PO 81 mg DAILY AMY Administration Atorvastatin Calcium 40 mg 06/11/25 12:00 06/12/25 09:16 Atorvastatin 40 Mg Tablet PO 40 mg DAILY AMY Administration Famotidine 20 mg 06/11/25 17:00 06/12/25 09:16 Famotidine 20 Mg Tablet PO 20 mg BID AMY Administration Folic Acid 1 mg 06/11/25 12:00 06/12/25 09:16 Folic Acid 1 Mg/0.2 Ml Inj IV PUSH 1 mg QAM AMY Administration Dextrose/Sodium Chloride 1,000 mls @ 100 mls/hr 06/11/25 12:45 06/12/25 09:15 Dextrose 5% Sodium Chloride 0.9% IV CONT 100 mls/hr .Q10H AMY Administration Magnesium Sulfate 2 gm in 50 mls @ 25 mls/hr 06/12/25 09:55 Magnesium Sulf 2 Gm/Water 50ml IVPB 06/12/25 11:54 ONCE ONE Lorazepam 2 - 4 mg 06/11/25 11:37 06/12/25 04:35 Lorazepam Inj (*Crx) 2 Mg/Ml Vial IV PUSH 2 mg Q15M PRN Administration until stable. (For CIWA >15 or High Risk) Multivitamins/Calcium 1 tablet 06/11/25 11:40 06/12/25 09:16 Therapeutic Multivitamins/Minerals Tab (*Bkc) PO 1 tablet DAILY AMY Administration Ondansetron HCl 4 mg 06/11/25 07:41 06/11/25 20:31 Ondansetron Inj 4 Mg/2 Ml Vial IV PUSH 4 mg Q4H PRN Administration Nausea Rivaroxaban 20 mg 06/11/25 18:00 06/11/25 17:18 Rivaroxaban 20 Mg Tablet PO 20 mg QPM AYM Administration Thiamine HCl 100 mg 06/11/25 11:45 06/12/25 09:16 Thiamine Hcl 200 Mg/2 Ml Vial IV PUSH 100 mg QAM AMY Administration Radiology Results: ITS Impressions Forearm X-Ray 06/11/25 06:22 IMPRESSION: 1: NO ACUTE BONE OR JOINT ABNORMALITY IDENTIFIED. Head CT 06/11/25 06:29 Impression: No significant abnormality seen. Head/Cervical Spine/Facial Bones CT 06/11/25 06:30 IMPRESSION: 1. No acute abnormality of the facial bones or cervical spine. 2: Right-sided aortic arch. 3: Moderate-severe cervical spondylosis. Labs Labs: Laboratory Results - last 24 hr 06/11/25 06/11/25 06/11/25 06:41 11:52 12:00 WBC RBC Hgb Hct MCV MCH MCHC RDW Plt Count MPV Immature Gran % (Auto) Neut % (Auto) Lymph % (Auto) Darke % (Auto) Eos % (Auto) Baso % (Auto) Lymph # (Auto) Darke # (Auto) Eos # (Auto) Baso # (Auto) Abs Immat Gran (auto) Absolute Neuts (auto) Absolute Nucleated RBC Nucleated RBC % Sodium 142 Potassium 4.1 Chloride 105 Carbon Dioxide 24 Anion Gap 13 H BUN 12 Creatinine 0.78 Estim Creat Clear Calc 84 Estimated GFR > 60 Glucose 74 POC Capillary Glucose 88 Lactic Acid 2.4 H Calcium 8.4 Magnesium Total Bilirubin 0.7 AST 62 H ALT 35 Alkaline Phosphatase 75 Total Protein 8.5 H Albumin 4.8 Ur Random Sodium 46 Ur Random Potassium 55.7 Urine Creatinine 358.5 Ur Phencyclidine Scrn Negative 06/11/25 06/11/25 06/11/25 14:11 17:05 18:42 WBC RBC Hgb Hct MCV MCH MCHC RDW Plt Count MPV Immature Gran % (Auto) Neut % (Auto) Lymph % (Auto) Darke % (Auto) Eos % (Auto) Baso % (Auto) Lymph # (Auto) Darke # (Auto) Eos # (Auto) Baso # (Auto) Abs Immat Gran (auto) Absolute Neuts (auto) Absolute Nucleated RBC Nucleated RBC % Sodium 139 Potassium 3.6 Chloride 105 Carbon Dioxide 21 L Anion Gap 13 H BUN 11 Creatinine 0.65 L Estim Creat Clear Calc 99 Estimated GFR > 60 Glucose 106 POC Capillary Glucose 102 Lactic Acid 2.1 H 2.0 Calcium 8.5 Magnesium Total Bilirubin 0.6 AST 55 ALT 33 Alkaline Phosphatase 60 Total Protein 7.8 Albumin 4.5 Ur Random Sodium Ur Random Potassium Urine Creatinine Ur Phencyclidine Scrn 06/12/25 06/12/25 00:07 04:02 WBC 5.1 RBC 3.45 L Hgb 11.4 L Hct 32.9 L MCV 95.4 MCH 33.0 MCHC 34.7 RDW 16.1 H Plt Count 172 MPV 8.6 Immature Gran % (Auto) 0.4 Neut % (Auto) 66.3 Lymph % (Auto) 19.8 Darke % (Auto) 11.7 H Eos % (Auto) 1.0 Baso % (Auto) 0.8 Lymph # (Auto) 1.02 Darke # (Auto) 0.6 Eos # (Auto) 0.1 Baso # (Auto) 0.0 Abs Immat Gran (auto) 0.02 Absolute Neuts (auto) 3.4 Absolute Nucleated RBC 0.000 Nucleated RBC % 0.0 Sodium 135 L Potassium 3.8 Chloride 103 Carbon Dioxide 25 Anion Gap 7 BUN 13 Creatinine 0.65 L Estim Creat Clear Calc 102 Estimated GFR > 60 Glucose 104 POC Capillary Glucose 88 Lactic Acid Calcium 8.5 Magnesium 1.4 L Total Bilirubin 1.1 AST 46 ALT 27 Alkaline Phosphatase 58 Total Protein 7.0 Albumin 4.0 Ur Random Sodium Ur Random Potassium Urine Creatinine Ur Phencyclidine Scrn
[2025-06-12] MEDS: MAGNESIUM SULF 2 GM/WATER 50ML 2 GM/50 ML BAG IVPB (10:12)
--- NOTE | 2025-06-12 11:49 | PC.NURSE ---
This patient, Neli Deshpande, was transferred to [facility] on 06/12/25 at 1143. Personal belongings sent with patient. Report given to LUCERO [place]. Appropriate documentation sent with patient. Patient resting in bed eating lunch with call light in reach, bed low and lock. Adi France RN
[2025-06-12] MEDS: NICOTINE (*PBKC) 21 MG PATCH 1 PATCH TRANSDERM (16:45)
[2025-06-12] MEDS: RIVAROXABAN 20 MG TABLET PO (17:55)
[2025-06-13] VITALS: BP 158/109; PULSE 106; RESP 20; TEMP 36.7; O2SAT 100
[2025-06-13 04:00] VITALS: BP 170/95; PULSE 65; RESP 18; TEMP 36.4; O2SAT 99
[2025-06-13] MEDS: DEXTROSE 5%/0.9% SOD CHL 1,000 ML 100 ML IV CONT (06:07)
[2025-06-13 06:35] LABS: Hematocrit 37.5 % (42.0-52.0); Hemoglobin 12.8 g/dL (14.0-18.0); Mean Corpuscular HGB Conc 34.1 g/dl (32-36); Mean Corpuscular Hemoglobin 33.1 pg (26-34); Mean Corpuscular Volume 96.9 fl (80-100); Platelet Count Result 169 k/mm3 (150-375); Red Blood Count 3.87 M/mm3 (4.6-6.20); White Blood Count 5.4 K/mm3 (4.5-10.0)
[2025-06-13 06:54] LABS: Alanine Aminotransferase 28 U/L (6-50); Albumin Level 4.7 g/dL (3.5-5.1); Alkaline Phosphatase 74 U/L (38-126); Anion Gap 11 mmol/L (4-12); Aspartate Amino Transferase 44 U/L (17-59); Bilirubin,Total 1.2 mg/dL (0.2-1.3); Blood Urea Nitrogen 5 mg/dL (9-20); Calcium 9.1 mg/dL (8.4-10.2); Carbon Dioxide 22 mmol/L (22-30); Chloride 100 mmol/L (98-107); Estimated CRCL calculation 116 ml/min; Estimated Glomerular Filt Rate > 60; Glucose 111 mg/dL (65-110); Magnesium 1.9 mg/dL (1.6-2.3); Potassium 3.5 mmol/L (3.4-5.0); Sodium 133 mmol/L (137-145); Total Protein 8.3 g/dL (6.3-8.2)
[2025-06-13 08:00] VITALS: BP 164/93; PULSE 73; RESP 18; TEMP 37.1; O2SAT 100
[2025-06-13] MEDS: NICOTINE (*PBKC) 21 MG PATCH 1 PATCH TRANSDERM (08:48)
[2025-06-13] MEDS: FAMOTIDINE 20 MG TABLET PO (08:48)
[2025-06-13] MEDS: THERAPEUTIC MULTIVITAMINS/MINERALS TAB (*BKC) 1 TABLET PO (08:48)
[2025-06-13] MEDS: THIAMINE HCL 200 MG/2 ML VIAL 100 MG IV PUSH (08:48)
[2025-06-13 12:00] VITALS: BP 168/92; PULSE 75; RESP 20; TEMP 36.4; O2SAT 100
[2025-06-13] MEDS: FOLIC ACID 1 MG TABLET PO (12:25)
[2025-06-13] MEDS: ATORVASTATIN 40 MG TABLET PO (12:25)
[2025-06-13] MEDS: RIVAROXABAN 20 MG TABLET PO (12:26)
[2025-06-13] MEDS: ASPIRIN 81 MG ENTERIC TABLET PO (12:26)
--- NOTE | 2025-06-13 14:56 | P.DS_ITS ---
DS: Admitting Diagnosis Discharge Date 06/13/2025 Admitting Diagnosis Alcohol intoxication DS: Discharge Diagnosis Discharge Diagnosis (1) Alcohol abuse: Code(s): F10.10 - Alcohol abuse, uncomplicated Status: Acute DS: Summary Hospital Course Hospital Course: 60-year-old male with past medical history alcohol use disorder, tobacco use disorder, PAD status post femoral popliteal bypass surgery right lower extremity with resultant left foot paresthesia and right lower extremity paresthesia distal to the knee currently on Xarelto, history of alcoholic hepatitis and alcohol withdrawal. Patient presents to [facility] ER on 06/11/2025 via EMS as he was found in his car intoxicated with alcohol. When speaking to the patient he says he does not know if the problem is as he was sitting in his car drinking Dr. Chavarria. He cannot elaborate further. Of note, in the ER he told the ER physician he drinks vodka with Dr. Chavarria. In the ER he was noted to have dried epistaxis in the right nare and some facial abrasions. Patient states he fell and received a CT scan at [facility] a few weeks prior. His vascular surgeon is at [facility]. He denied chest pain, fever, fainting, shortness of breath, nausea vomiting or diarrhea, abdominal pain. ----- See below for individual problems and management. Patient is discharged to home in stable condition on 06/13/2025. His CIWA score 0. Care coordination has made a visit with the patient and he has received them well, however the patient does not want any further assistance with alcohol abstinence and wants to do it by himself. Will however discharge him with multivitamin, thiamine, folate as he is willing to take vitamins. Patient had hypernatremia on admission and now has slightly low sodium at 133 however does not wish to further monitor or manage. He does not want any change in his medications, his blood pressure was elevated and we talked about the risk of that. It appears he was prescribed Coreg prior to admission but he was not taking that. Advised the patient to follow-up with his PCP within 7 days to further manage his medical conditions. Altered mental status Alcohol use disorder -patient found in his car. By the time he arrived he was A&O x3. Likely due to alcohol intoxication. ETOH level on admission 370 -CIWA protocol. Thiamine, folic acid, multivitamin, PT OT, fall precautions, ambulate with assistance. -consult care coordination for abuse. Patient reports he lives at home alone. -benzodiazepines positive on urine drug screen, patient denies use. -06/12/2025: CIWA score 6. Also, his jaw clamped he bit his tongue overnight. No other episodes. Continue CIWA protocol. Tobacco use disorder -active abuse. 21 mg nicotine patch daily Hold [employer] Chant[employer] Acute hypernatremia -presents with sodium 151. Without any intervention repeat sodium is 142. Acute hyponatremia which is likely due to volume deficit. -D5 normal saline started on admission, patient not eating yet. Fluids discontinued, patient eating and drinking. Hypomagnesemia -magnesium 1.4 in 06/12/2025. Resolved. Lactic acidosis Anion gap metabolic acidosis -likely due to alcohol, starvation, hypovolemia. He is hemodynamically stable. -lactic acid 2.4 on admission, resolved. Anion gap 17 on admission, resolved. He was full code during the admission. Time Spent with Patient Time attestation: Total time spent providing and/or coordinating discharge services: Exam Const: General: comfortable and no acute distress Other: A&O x3 HENMT: Mouth: Yes moist mucous membranes Other: Poor dentition Eyes: Pupils: Equal, round and reactive pupils present Neck: Neck: supple Resp: Effort & Inspection: normal respiratory effort Auscultation: clear to auscultation bilaterally Cardio: Rate: regular rate Rhythm: regular rhythm GI: Inspection: non-distended GI Palp: Yes Soft to palpation Neuro: Motor exam (neuro): 5/5 motor strength present throughout Extrem: General: no edema DS: Data Data Completed and Pending Labs on day of discharge: Labs from last 24 hours 06/13/25 06/13/25 06/13/25 11:55 05:54 00:25 WBC 5.4 RBC 3.87 L Hgb 12.8 L Hct 37.5 L MCV 96.9 MCH 33.1 MCHC 34.1 RDW 15.9 H Plt Count 169 MPV 9.6 Sodium 133 L Potassium 3.5 Chloride 100 Carbon Dioxide 22 Anion Gap 11 BUN 5 L D Creatinine 0.61 L Estim Creat Clear Calc 116 Estimated GFR > 60 Glucose 111 H POC Capillary Glucose 122 H 125 H Calcium 9.1 Phosphorus 3.1 Magnesium 1.9 Total Bilirubin 1.2 AST 44 ALT 28 Alkaline Phosphatase 74 Total Protein 8.3 H Albumin 4.7 Discharge Plan Discharge Attending physician on discharge: Veda Johnson Discharging Clinician: Veda Johnson Patient Disposition: Home Activity: may shower Diet: as tolerated Patient Instructions: Antibiotic Form Patient Language: Ivorian Stand Alone Forms: General Discharge Information Follow-up/Referrals: Cristian Tate MD [Primary Care Provider] - (Follow-up on alcohol withdrawal, high blood pressure and other medical conditions.) Discharge Medications: New folic acid 1 mg tablet 1 mg PO DAILY Qty: 30 0RF multivitamin Tablet 1 tablet PO DAILY Qty: 30 0RF thiamine HCl (vitamin B1) 100 mg tablet 100 mg PO DAILY Qty: 30 0RF Continued varenicline tartrate 1 mg tablet 1 mg PO BID Qty: 56 3RF atorvastatin 40 mg tablet 40 mg PO DAILY Qty: 90 2RF Xarelto 20 mg tablet 20 mg PO DAILY Qty: 90 3RF Rx Instructions: must administer with evening meal famotidine 20 mg tablet 20 mg PO BID aspirin 81 mg tablet,delayed release (DR/EC) 81 mg PO DAILY albuterol sulfate [Ventolin HFA] 90 mcg/actuation HFA aerosol inhaler 2 inh inhalation Q4H PRN (Reason: shortness of breath or wheezing) Qty: 8.5 0RF Discontinued carvedilol 6.25 mg tablet 6.25 mg PO Q12H Rx Instructions: must administer with a meal/food Date of admission: 06/11/25 07:41 Primary Care Provider: Cristian Tate Admitting Provider: Silvino Dutta Attending physician on admission: Silvino Dutta Condition: Stable Hospitalist MIPS Heart Failure (Exclusion) Patient has history of Heart Transplant or Left Ventricular Assistive Device?: No IF YES, STOP HERE Heart Failure (Qualifier) Patient has current or prior documentation of LVEF less than or equal to 40%, or mod/servere depressed LVSF?: No IF NO, STOP HERE
[2025-06-14 13:08] LABS: Osmolality, Urine 633 mOsmol/kg (.)
== END 2025-06-13 15:15 | disposition home or self-care (01) ==
LOC: ANHED 07:41 → ANHIMU 14:59 → ANH3MEDSUR 06-13 14:54 → ANHIMU 06-14 09:44
PROVIDERS: Admitting Provider Hospitalist; Emergency Provider Student in an Organized Health Care Education/Training Program; PCP Family Medicine Adolescent Medicine; Visit Provider General Practice
DX: F10.120 Alcohol abuse with intoxication, uncomplicated (principal); Y90.8 Blood alcohol level of 240 mg/100 ml or more; E87.20 Acidosis, unspecified; E87.0 Hyperosmolality and hypernatremia; E83.42 Hypomagnesemia; M79.605 Pain in left leg; G89.29 Other chronic pain; I73.9 Peripheral vascular disease, unspecified; R51.9 Headache, unspecified; D64.9 Anemia, unspecified; M47.812 Spondylosis without myelopathy or radiculopathy, cervical region; S50.12XA Contusion of left forearm, initial encounter; S00.81XA Abrasion of other part of head, initial encounter; W19.XXXA Unspecified fall, initial encounter; Z79.01 Long term (current) use of anticoagulants; Z79.51 Long term (current) use of inhaled steroids; F17.200 Nicotine dependence, unspecified, uncomplicated
CPT/HCPCS: 36415; 70450; 70486; 72125; 73090; 80048; 80053; 80307; 81001; 82077; 82570; 82948; 83605; 83735; 83935; 84100; 84133; 84300; 85025; 85027; 85610; 85730; 93005; 96365; 96366; 96375; 97161; 97165; 99285; A9270; G0378; G0379; J2060; J2405; J3411; J3475; J7042; J7070